=== PATIENT | female | born 1950 | race Caucasian/White ===

== ENCOUNTER → 2017-07-23 08:51 | Outpatient (CLI) | payer MEDICARE, SELFPAY ==
--- NOTE | 2017-07-23 08:55 | MM_ITS ---
MM Dig screening mamm BI w/CAD CAD Screening COMPARISON: Digital mammograms 03/12/2016 and 08/03/2013 INDICATION: There is a history of breast cancer in patient's sister diagnosed in her 50s. There has been a previous biopsy right breast for benign disease. TECHNIQUE: Standard CC and MLO images were obtained. R2 CAD reviewed. FINDINGS: Moderate heterogenic fibroglandular densities are seen in the central portions of both breasts. The findings are fairly symmetrical bilaterally. There is faint arterial calcification in each breast and is a benign-appearing calcification left breast. There is no suspicious lesion and there are no suspicious microcalcifications. IMPRESSION: Moderate breast density with no suspicious lesion seen BI-RADS Category: 2 Benign Finding(s) RECOMMENDED FOLLOW-UP: 1YR - 1 YEAR FOLLOW-UP (A letter has been sent to the patient regarding results of the study.)
== END ==
PROVIDERS: Family Provider Internal Medicine Adolescent Medicine; PCP Surgery; Visit Provider Internal Medicine Adolescent Medicine
DX: Z12.31 Encounter for screening mammogram for malignant neoplasm of breast (principal)
CPT/HCPCS: 77067

== ENCOUNTER → 2018-07-25 08:39 | Outpatient (CLI) | payer MEDICARE, MEDICAID, SELFPAY ==
--- NOTE | 2018-07-25 08:42 | XR_ITS ---
XR DEXA axial skeleton HISTORY: ITS.REASON: OSTEOPOROSIS ORDERING PHYSICIAN: Mer Isaac PATIENT AGE: 68 years COMPARISON: 04/12/2016 FINDINGS: The BMD measured at the AP SPINE L1-L4 is 0.862 g/cm squared with a T score of -2.7. This is considered Osteoporotic according to the World Health Organization criteria. Fracture risk is High. Treatment is advised. The mean hip density has a T score of -2.5 also consistent with osteoporosis. The lumbar spine density has increased by 7% in the hip density is unchanged. IMPRESSION: Osteoporosis without fracture risk. Treatment is advised. Recommend follow-up exam in one year.
--- NOTE | 2018-07-25 08:42 | MM_ITS ---
MM Dig screening mamm BI w/CAD CAD Screening COMPARISON: Digital mammograms with CAD 07/23/2017 and 03/12/2016 INDICATION: There is a history of breast cancer in patient's sister diagnosed in her 50s. There is been previous biopsy right breast for benign disease. TECHNIQUE: Standard CC and MLO images were obtained. R2 CAD reviewed. FINDINGS: Moderate somewhat heterogenic fibroglandular densities are seen in the central portions of both breasts and the findings are bilateral and symmetrical. There is a benign-appearing calcification left breast. There is faint arterial calcification in each breast. There is no suspicious lesion and there are no suspicious microcalcifications. IMPRESSION: Moderate breast density with no suspicious lesion seen BI-RADS Category: 2 Benign Finding(s) RECOMMENDED FOLLOW-UP: 1YR - 1 YEAR FOLLOW-UP (A letter has been sent to the patient regarding results of the study.)
== END ==
PROVIDERS: PCP Nurse Practitioner Family; Visit Provider Nurse Practitioner Family
DX: Z12.31 Encounter for screening mammogram for malignant neoplasm of breast (principal); M81.0 Age-related osteoporosis without current pathological fracture; Z13.820 Encounter for screening for osteoporosis
CPT/HCPCS: 77067; 77080

== ENCOUNTER → 2018-11-26 14:55 | Outpatient (CLI) | payer MEDICARE, MEDICAID, SELFPAY ==
--- NOTE | 2018-11-26 14:59 | CT_ITS ---
CT lung screening EXAM: CT LUNG LOW DOSE WO CONTRAST HISTORY: Nicotine dependency ITS.REASON: CURRENT TOBACCO USE ORDERING PHYSICIAN: Mer Isaac APRN PATIENT AGE: 68 years COMPARISON: None TECHNIQUE: The exam was performed on a GE Light Speed [address] scanner using 2.90 mGy CTDI. A low dose helical CT CHEST was performed on a multi-detector scanner. All CT scans at the facility use one or more dose reduction, viz: automated exposure control, ma/kV adjustment per patient size (including targeted exams where dose is matched to indication, i.e. head), or iterative reconstruction technique. The LDCT was performed in a facility that meets the criteria for the screening program. Data regarding this exam was submitted to ACR which is an approved registry. The order for this exam indicates that it came as a result of a lung cancer screening counseling shard decision-making visit that included all the elements required of such a visit including smoking cessation. The radiologist interpreting this exam meets the CMS criteria for the LDCT lung cancer screening program. The exam is reported using the Lung-RADS classification scale and reported to the ACR registry. NOTE: This study was performed for the specific purposes of lung cancer screening and is not an alternative to diagnostic chest CT. RADIATION DOSE: CTDI vol(CT dose Index-volume) = 2.90mG DLP (Dose Length Product) = 114.1 mGcm FINDINGS: There are biapical fibrotic changes with COPD and centrilobular emphysema. Calcified granuloma right upper lobe. There are fibrotic changes in the lung bases as well. Mild diffuse bronchial thickening there is an 8 mm noncalcified nodule within the lingula. Coronary artery calcifications are present. IMPRESSION: 1. Lung RADS Category: 3, probably benign, 8 mm nodule within the lingula 2. Other findings: COPD/centrilobular emphysema, coronary artery disease RECOMMENDATIONS: [address] without and with contrast
== END ==
PROVIDERS: PCP Nurse Practitioner Family; Visit Provider Nurse Practitioner Family
DX: Z12.2 Encounter for screening for malignant neoplasm of respiratory organs (principal); Z87.891 Personal history of nicotine dependence

== ENCOUNTER → 2019-03-12 09:13 | Outpatient (CLI) | payer MEDICARE, MEDICAID, SELFPAY ==
--- NOTE | 2019-03-12 09:16 | MR_ITS ---
PROCEDURE: MR HEAD/BRAIN WO/W CON CLINICAL INDICATION: NEW ONSET HEADACHES, DIZZINESS COMPARISON: No exams were available for comparison TECHNIQUE: Routine multi-echo and multiplanar images also utilizing 12 cc of ProHance contrast. Diffusion-weighted images are obtained as well. FINDINGS: There are no areas of restricted diffusion. There is no mass, acute hemorrhage or extra-axial fluid collection. Ventricles, sulci and cortical areas are normal. There are small round foci of CSF signal along the anterior, short areas bilaterally consistent with prominent perivascular spaces. White Matter areas show few small nonenhancing foci of increased FLAIR signal involving frontal and parietal centrum semiovale deep white matter areas as well as the central aspect of the meryl. Visualized portions of the optic pathway structures are normal. There are no areas of abnormal enhancement. Visualized vessels are patent and the area of the foramen magnum is normal. There is some increased T2 signal in the left mastoid air cells. IMPRESSION: No acute intracranial process and no acute infarctions. White matter findings consistent with mild chronic microvascular ischemic change. Left mastoid air cell effusion. Dictated by: Tommy Corbin 03/12/2019 10:29 Electronically signed by Tommy Corbin in [place] 03/12/2019 10:29
--- NOTE | 2019-03-12 10:06 | HMH.ITSHM ---
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 []VITAMIN D CALCIUM
== END ==
PROVIDERS: PCP Nurse Practitioner Family; Visit Provider Nurse Practitioner Family
DX: R51 Headache (principal); R42 Dizziness and giddiness
CPT/HCPCS: 70553; A9576

== ENCOUNTER 2019-03-22 18:40 | Observation (INO) ==
--- NOTE | 2019-03-22 19:07 | Emergency Department Note ---
ED Disposition Clinical Impression: Acute exacerbation of chronic obstructive airways disease Disposition: Admitted as Observation Condition on Discharge: Good Referrals: Henrik Hand MD [Primary Care Provider] - - Critical Care Critical Care Time: No Attestation: On 03/22/19, the high probability of a clinically significant, sudden or life threatening deterioration of the following system(s) required my full and direct attention, intervention and personal management. The time I documented below is in addition to time spent performing reported procedures but includes the following listed in this critical care notation. Medical Decision Making - Medical Records Medical records reviewed: Yes: I reviewed the patient's medical records. - Braulio Inquiry Pt receiving controlled substance: No Vital Signs: 03/22/19 18:54 03/22/19 19:11 03/22/19 19:52 Temperature 99 F Temperature Source Oral Pulse Rate 87 Pulse Rate [Left Radial] 100 H 85 Respiratory Rate 24 Blood Pressure [Right Arm] 151/81 H 127/88 Blood Pressure Mean [Right Arm] 104 101 Blood Pressure Source [Right Arm] Manual Cuff/ Palpation Blood Pressure Position [Right Arm] Sitting 02 Sat by Pulse Oximetry 71 L 94 L Oxygen Delivery Method Room Air - Lab Data Lab results reviewed: Yes: I reviewed the patient's lab results. Lab Results 03/22/19 19:01: WBC 8.1, RBC 5.04, Hgb 15.6, Hct 50.2 H, MCV 99.5 H, MCH 30.9, MCHC 31.1 L, RDW 13.5, Plt Count 255, MPV 8.7, Neut % (Auto) 68.7, Lymph % (Auto) 21.4, [place] % (Auto) 7.6, Eos % (Auto) 1.7, Baso % (Auto) 0.5, Neut # (Auto) 5.6, Lymph # (Auto) 1.7, [place] # (Auto) 0.6, Eos # (Auto) 0.1, Baso # (Auto) 0.0 03/22/19 19:01: Sodium 140, Potassium 4.2, Chloride 99, Carbon Dioxide 36 H, Anion Gap 9.2, BUN 14, Creatinine 0.70, Estimated Creat Clear 46, Estimated GFR 83, Est GFR ( Amer) 100, Glucose 115 H, Calcium 9.0, Total Bilirubin 0.3, AST 20, ALT 20, Alkaline Phosphatase 87, Troponin I < 0.02, Total Protein 7.5, Albumin 3.4, Globulin 4.1 H, Albumin/Globulin Ratio 0.8 L 03/22/19 19:01: Lactate 1.5 Result diagrams: 03/22/19 19:01 03/22/19 19:01 Orders (Tests/Meds): ED MEDICATIONS Generic Name Dose Route Start Last Admin Trade Name Freq PRN Reason Stop Dose Admin Levofloxacin/Dextrose 500 mg in 100 mls @ 100 mls/hr 03/22/19 19:45 03/22/19 19:45 Levaquin 500mg/100ml Premix IV 04/05/19 19:44 100 mls/hr Q24H AMIRA Administration Protocol Discontinued Medications Generic Name Dose Route Start Last Admin Trade Name Freq PRN Reason Stop Dose Admin Albuterol/Ipratropium 3 ml 03/22/19 19:03 03/22/19 19:11 Duoneb 3ml Neb IH 03/22/19 19:04 3 ml ONCE ONE Administration Methylprednisolone Sodium Succinate 125 mg 03/22/19 19:03 03/22/19 19:32 Solu-Medrol 125mg/2ml Vial IV 03/22/19 19:04 125 mg ONCE ONE Administration ORDERS Category Date Time Status Chest XR -- portable [XR chest portable] Stat Exams 03/22/19 18:58 Taken Blood Culture Stat Micro 03/22/19 19:34 Received - Radiology Data #1 Image(s): Chest Image Reviewed: Yes I reviewed the patient's radiology image Preliminary Findings: No Infiltrates Seen - ECG Data Tracing #1 I reviewed this ECG and interpreted as documented below: Normal Sinus Rhythm: Yes (no stemi) Medical Decision Narrative: admit d/w Dr Liriano General Adult HPI - General Chief complaint: Shortness of Breath/Dyspnea Stated complaint: SOA Time Seen by Provider: 03/22/19 19:04 Mode of Arrival: Ambulatory Source of Information: Patient Limitations: No Limitations Description of Symptoms (Recalled from ER Triage Doc. by RN): TO ED PER [employer] CAR WITH C/O SOB X SEVERAL DAYS PROGRESSIVELY GETTING WORSE. +COUGH, ?FEVER AT HOME. 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, +cough, no chest pain or fever, hx copd - Related Data Home Medications Medication Instructions Recorded Confirmed albuterol sulfate 90 mcg/actuation 1 inh INHALATION ONCE 08/15/17 breath activated powder inhaler albuterol sulfate HFA 90 1 puff INHALATION Q6H 08/15/17 mcg/actuation aerosol inhaler alendronate 70 mg tablet 70 mg PO QWEEK 08/15/17 budesonide-formoterol HFA 160 2 inh INHALATION Q12H 08/15/17 mcg-4.5 mcg/actuation aerosol inhaler calcium carbonate 600 mg calcium 600 mg PO ONCE tab 08/15/17 (1,500 mg) tablet lovastatin 40 mg tablet 40 mg PO BID tab 08/15/17 naproxen sodium 220 mg tablet 220 mg PO Q12H 08/15/17 Allergies Allergy/AdvReac Type Severity Reaction Status Date / Time azithromycin [From Zithromax] Allergy Verified 03/22/19 20:23 [facility] History - Hepatitis A Screen Drug use history?: No High risk sexual behaviors?: No History of sexually transmitted infection?: No Currently employed?: No Childcare worker?: No Do you have indoor plumbing?: Yes Do you have electricity?: Yes Attestation statement:: This patient has been screened for Hepatitis A risk factors. Medical History: Reports:: Chronic Obstructive Pulmonary Disease (COPD), Hyperlipidemia Denies:: Cancer, Diabetes Mellitus Type 1, Diabetes Mellitus Type 2, MRSA Amputation: No Fractures: No - Social History Smoking Status: Current every day smoker Tobacco Type: cigarettes # Packs/Day (cigarettes): 1 Alcohol Intake: never Substance Use Type: denies use Occupational Status: other ROS Obtained: Yes Systems reviewed as appropriate & no additional complaints - Constitutional Constitutional: Reports fatigue - Eyes Eyes: Denies change in vision - ENT Ears, Nose, Mouth, and Throat: Denies neck pain - Cardiovascular Cardiovascular: Denies acrocyanosis, Denies chest pain - Respiratory Respiratory: Yes dyspnea - Gastrointestinal Gastrointestingal: Denies: abdominal pain - Musculoskeletal Musculoskeletal: Denies limited range of motion - Integumentary/Breasts Skin/Breast: Denies rash - Neurologic Neurologic: Denies headache(s) Physical Exam - General General appearance: alert, in no apparent distress - Head Head exam: normocephalic - Eye Eye exam: Present: normal appearance - ENT ENT exam: Present: mucous membranes moist - Neck Neck exam: Present: normal inspection - Respiratory Respiratory exam: Present: wheezes. Absent: stridor - Cardiovascular Cardiovascular exam: Present: regular rate, normal rhythm - Abdominal Exam Abdominal exam: Present: soft. Absent: tenderness - Extremities Exam Extremities exam: Present: full ROM. Absent: pedal edema - Back Exam Back exam: Absent: vertebral tenderness - Neurological Exam Neurological exam: Present: alert, oriented X3 - Psychiatric Psychiatric exam: Present: normal affect, normal mood - Skin Skin exam: Present: warm, dry
[2019-03-22 19:14] LABS: Basophils % 0.5 % (0.1-2.0); Eosinophils # 0.1 K/mm3 (0.0-0.4); Eosinophils % 1.7 % (0.1-12.0); Hematocrit 50.2 % (37.0-47.0); Hemoglobin 15.6 g/dL (12.2-16.2); Lymphocytes # 1.7 K/mm3 (0.7-4.5); Lymphocytes % 21.4 % (10-50); Mean Corpuscular HGB Conc 31.1 g/dL (31.8-35.4); Mean Corpuscular Volume 99.5 fl (81-99); Mean Platelet Volume 8.7 fl (7.4-10.4); Monocytes # 0.6 K/mm3 (0.1-1.0); Monocytes % 7.6 % (1.7-9.3); Neutrophils # 5.6 K/mm3 (1.8-7.8); Neutrophils % 68.7 % (37.0-80.0); Platelet Count 255 K/mm3 (142-424); Red Blood Count 5.04 M/mm3 (4.20-5.40); Red Cell Distribution Width 13.5 % (11.5-17.5); White Blood Count 8.1 K/mm3 (4.8-10.8)
[2019-03-22 19:29] LABS: Alanine Aminotransferase 20 U/L (12-78); Albumin Level 3.4 gm/dL (3.4-5.0); Albumin/Globulin Ratio 0.8 (1.1-1.8); Alkaline Phosphatase 87 U/L (46-116); Anion Gap 9.2 mEq/L (5-15); Aspartate Amino Transferase 20 U/L (15-37); Bilirubin,Total 0.3 mg/dL (0.2-1.0); Blood Urea Nitrogen 14 mg/dL (7-18); Carbon Dioxide 36 mmol/L (21.0-32.0); Chloride 99 mmol/L (98-107); Globulin 4.1 gm/dl (1.3-3.2); Glucose 115 mg/dL (74-106); Sodium 140 mmol/L (136-145); Total Protein,Serum 7.5 gm/dL (6.4-8.2)
[2019-03-22 20:32] LABS: ABG Base Excess 6.2 mmol/L (-2.4-2.3); ABG Oxygen Saturation 92 % (90-100); ABG PH 7.34 mmol/L (7.35-7.45); ABG PO2 63.9 mmhg (80-100); ABG TCO2 33.9 mmhg (23-27)
[2019-03-22 20:33] LABS: Allen's Test Y; Oxygen 3.5 %
[2019-03-22 20:36] LABS: ABG PCO2 61.4 mmhg (35.0-45.0)
--- NOTE | 2019-03-23 00:56 | History & Physical Report ---
*Admission Date: 03/22/19 *Chief complaint: SOA *History of present illness: 68-year-old female history of COPD, non-oxygen dependent at home who presented with worsening shortness of breath and dizziness over the past few days. He came to the ER and was found to have hypoxemia and elevated CO2 with a normal pH. Imaging not consistent with pneumonia however new oxygen requirement noted. Admitted for acute hypoxemic respiratory failure. Started on antibiotics and steroids. Patient states she feels a little bit better this morning than she did yesterday. Denies any chest pain, syncope, nausea, vomiting. Uses inhalers at home but they were not helping her. In moderate respiratory distress this morning on supplemental oxygen with normal O2 sats. [facility] History I have reviewed the patient's past medical history: Yes Medical History: Reports:: Chronic Obstructive Pulmonary Disease (COPD), Hyperlipidemia Denies:: Cancer, Diabetes Mellitus Type 1, Diabetes Mellitus Type 2, MRSA *Have you ever received a pneumonia vaccine?: Yes *Have you received a flu vaccine this season?: Yes Laterality Cases: Bilateral: Cataract Other Surgeries: Yes: Colonoscopy, Tubal Ligation Amputation: No Fractures: No - *Social History Educational Level: Attended Grade School Smoking Status: Current every day smoker Tobacco Type: cigarettes # Packs/Day (cigarettes): 1 Alcohol Intake: never Substance Use Type: denies use *Occupational Status:: retired Household Members: children *Travel in the last 8 weeks: None Family Hx:: Cancer, Heart Attack, Hyperlipidemia, Hypertension, Stroke Review of Systems - Review of Systems Review of systems:: pertinent systems reviewed and negative unless documented below - *Neurologic Denies headache(s) Meds Home Medications Medication Instructions Recorded Confirmed Type albuterol sulfate 90 mcg/actuation 1 inh INHALATION ONCE 08/15/17 03/22/19 History breath activated powder inhaler albuterol sulfate HFA 90 1 puff INHALATION Q6H 08/15/17 03/22/19 History mcg/actuation aerosol inhaler alendronate 70 mg tablet 70 mg PO QWEEK 08/15/17 03/22/19 History budesonide-formoterol HFA 160 2 inh INHALATION Q12H 08/15/17 03/22/19 History mcg-4.5 mcg/actuation aerosol inhaler calcium carbonate 600 mg calcium 600 mg PO ONCE tab 08/15/17 03/22/19 History (1,500 mg) tablet lovastatin 40 mg tablet 40 mg PO BID tab 08/15/17 03/22/19 History naproxen sodium 220 mg tablet 220 mg PO Q12H 08/15/17 03/22/19 History Desloratadine/Pseudoephedrine 1 each PO DAILY 03/22/19 03/22/19 History [Clarinex-D 12 Hour Tablet] Fluticasone Propionate [Flonase 1 spr NS BID 03/22/19 03/22/19 History 50mcg nasal spray 16gm] Allergies Allergy/AdvReac Type Severity Reaction Status Date / Time azithromycin [From Zithromax] Allergy Verified 03/22/19 20:23 Exam Vital signs and Labs for Last 24 Hours: Temp Pulse Resp BP Pulse Ox 98.3 F 86 20 122/61 92 L 03/23/19 00:00 03/23/19 00:00 03/23/19 00:00 03/23/19 00:00 03/23/19 00:00 Laboratory Results - last 24 hr 03/22/19 19:01: WBC 8.1, RBC 5.04, Hgb 15.6, Hct 50.2 H, MCV 99.5 H, MCH 30.9, MCHC 31.1 L, RDW 13.5, Plt Count 255, MPV 8.7, Neut % (Auto) 68.7, Lymph % (Auto) 21.4, [place] % (Auto) 7.6, Eos % (Auto) 1.7, Baso % (Auto) 0.5, Neut # (Auto) 5.6, Lymph # (Auto) 1.7, [place] # (Auto) 0.6, Eos # (Auto) 0.1, Baso # (Auto) 0.0 03/22/19 19:01: Sodium 140, Potassium 4.2, Chloride 99, Carbon Dioxide 36 H, Anion Gap 9.2, BUN 14, Creatinine 0.70, Estimated Creat Clear 46, Estimated GFR 83, Est GFR ( Amer) 100, Glucose 115 H, Calcium 9.0, Total Bilirubin 0.3, AST 20, ALT 20, Alkaline Phosphatase 87, Troponin I < 0.02, Total Protein 7.5, Albumin 3.4, Globulin 4.1 H, Albumin/Globulin Ratio 0.8 L 03/22/19 19:01: Lactate 1.5 03/22/19 20:31: Specimen Source R/r, O2 % 3.5, ABG pH 7.34 L, ABG pCO2 61.4 H, ABG pO2 63.9 L, ABG HCO3 32.0 H, ABG Total CO2 33.9 H, ABG O2 Saturation 92, ABG Base Excess 6.2 H, Hubert Test Y 03/22/19 23:25: Troponin I < 0.02 I & O for Last 24 hours: Intake & Output 03/20/19 03/21/19 03/22/19 03/23/19 23:59 23:59 23:59 23:59 Weight 56.245 kg - Constitutional mild distress, thin, chronically ill appearing - *Routine HEENT Exam Head: Present: normocephalic Eye: Present: EOMI, PERRL ENT: Present: mucous membranes moist - *Routine Neck Exam Present: supple. Absent: lymphadenopathy - *Routine Respiratory Exam Present: accessory muscle use, prolonged expiratory phase, rhonchi, wheezes, diminished air movement - *Routine Cardiovascular Exam Present: RRR, Normal S1 - *Routine Abdominal Exam Present: soft, normoactive bowel sounds. Absent: tenderness - *Routine Extremities Exam Absent: cyanosis, clubbing, edema - *Routine Skin Exam Present: warm. Absent: rash - *Routine Neurological Exam Present: alert, oriented X3 Assessment and Plan (1) Acute hypoxemic respiratory failure Current visit: Yes Status: Acute Category: Medical Code(s): J96.01 - Acute respiratory failure with hypoxia (2) COPD exacerbation Current visit: Yes Status: Acute Category: Medical Code(s): J44.1 - Chronic obstructive pulmonary disease with (acute) exacerbation - Assessment and plan all Dx Assessment and Plan for all problems:: 5-year-old female with history of COPD with no oxygen use at home who presents with acute worsening of respiratory failure necessitating oxygen. Patient also found to be hypercarbic. At this time has been initiated on antibiotics and steroids. Continues to have difficulty breathing this morning though somewhat improved from presentation. DuoNebs every 4 to help promote opening airways. Will assess for potential need for oxygen at home at time of discharge. Currently continues to require respiratory management and inpatient management due to respiratory distress. Full code.
[2019-03-23 06:13] LABS: Basophils % 0.3 % (0.1-2.0); Eosinophils # 0.1 K/mm3 (0.0-0.4); Eosinophils % 0.8 % (0.1-12.0); Hematocrit 52.2 % (37.0-47.0); Hemoglobin 15.9 g/dL (12.2-16.2); Lymphocytes # 0.8 K/mm3 (0.7-4.5); Lymphocytes % 12.8 % (10-50); Mean Corpuscular HGB Conc 30.4 g/dL (31.8-35.4); Mean Corpuscular Volume 101.1 fl (81-99); Mean Platelet Volume 8.8 fl (7.4-10.4); Monocytes # 0.2 K/mm3 (0.1-1.0); Monocytes % 3.1 % (1.7-9.3); Neutrophils # 5.4 K/mm3 (1.8-7.8); Platelet Count 239 K/mm3 (142-424); Red Blood Count 5.16 M/mm3 (4.20-5.40); Red Cell Distribution Width 13.3 % (11.5-17.5); White Blood Count 6.5 K/mm3 (4.8-10.8)
[2019-03-23 06:23] LABS: Anion Gap 8.5 mEq/L (5-15); Blood Urea Nitrogen 12 mg/dL (7-18); Calcium 8.8 mg/dL (8.5-10.1); Carbon Dioxide 35 mmol/L (21.0-32.0); Chloride 101 mmol/L (98-107); Glucose 159 mg/dL (74-106); Sodium 140 mmol/L (136-145)
--- NOTE | 2019-03-23 07:42 | Pharmacy Consult Notes ---
[facility] Pharmacy VTE Monitoring - Patient Demographics Admission date: 03/22/19 Report Date: 03/23/19 Time: 07:41 Allergies/Adverse Reactions: Patient Allergies azithromycin [From Zithromax] Allergy (Verified 03/22/19 20:23) Height: 1.52 m Weight: 55.82 kg Patient Problems: Current Active Problems Acute exacerbation of chronic obstructive airways disease (Acute) - VTE Risk Labs: VTE Related Lab Results Hgb 15.9 g/dL (12.2-16.2) 03/23/19 05:45 Hct 52.2 % (37.0-47.0) H 03/23/19 05:45 Plt Count 239 K/mm3 (142-424) 03/23/19 05:45 BUN 12 mg/dL (7-18) 03/23/19 05:45 Creatinine 0.60 mg/dL (0.55-1.02) 03/23/19 05:45 Estimated Creat Clear 46 mL/min (50-200) 03/23/19 05:45 VTE Risk Level: Low Risk - Prophylaxis VTE Prophylaxis Ordered?: Yes Types of VTE Prophylaxis: TEDS Knee High Location of Applied Device: Bilateral Lower Extremeties - VTE Diagnosis Confirmed Treatment or plan recommended: Continue Current Treatment
--- NOTE | 2019-03-23 17:21 | Electrocardiograph Report ---
APPROVED REPORT Exam: Resting ECG HR:89 bpm ECG Measurements Heart Rate 89 AXES IN 134 P 82 QRSd 94 QRS 82 QT 376 T71 QTc 457 <Conclusion> Normal sinus rhythm with sinus arrhythmia Incomplete RBBB Otherwise Normal ECG Electronically signed by : Maneul Smith, 03/23/2019 17:21:14
[2019-03-24 06:15] LABS: Basophils % 0.5 % (0.1-2.0); Eosinophils # 0.1 K/mm3 (0.0-0.4); Eosinophils % 0.9 % (0.1-12.0); Hematocrit 45.9 % (37.0-47.0); Lymphocytes # 1.8 K/mm3 (0.7-4.5); Lymphocytes % 30.6 % (10-50); Mean Corpuscular HGB Conc 29.8 g/dL (31.8-35.4); Mean Corpuscular Volume 102.7 fl (81-99); Mean Platelet Volume 8.4 fl (7.4-10.4); Monocytes # 0.4 K/mm3 (0.1-1.0); Monocytes % 6.3 % (1.7-9.3); Neutrophils # 3.7 K/mm3 (1.8-7.8); Neutrophils % 61.8 % (37.0-80.0); Platelet Count 218 K/mm3 (142-424); Red Blood Count 4.47 M/mm3 (4.20-5.40); Red Cell Distribution Width 13.7 % (11.5-17.5)
[2019-03-24 06:24] LABS: Anion Gap 4.3 mEq/L (5-15); Calcium 8.5 mg/dL (8.5-10.1)
[2019-03-24 07:20] LABS: Hemoglobin 13.6 g/dL (12.2-16.2)
--- NOTE | 2019-03-24 15:59 | Progress Note ---
Internal Medicine - PN: Subj *Date: 03/24/19 *Time: 08:45 Interval history: Ms. Machuca continues to have accessory muscle use and dyspnea. Oxygen saturations are 92 to 94% on 2 L nasal cannula oxygen while in the room on interview this morning. Desatted down to 86% at rest when removed supplemental oxygen and was just on room air. Overall she states she feels somewhat better however is still easily fatigued and dyspneic with exertion such as walking to the bathroom. Tolerating regular p.o. intake. Denies chest pain, nausea, vomiting, confusion. No dizziness or syncope Exam Vital signs and Labs for Last 24 Hours: Temp Pulse Resp BP Pulse Ox 97.8 F 72 19 145/63 H 90 L 03/24/19 12:00 03/24/19 14:25 03/24/19 12:00 03/24/19 12:00 03/24/19 12:00 Laboratory Results - last 24 hr 03/24/19 05:32: WBC 6.0, RBC 4.47, Hgb 13.6 D, Hct 45.9, MCV 102.7 H, MCH 30.6, MCHC 29.8 L, RDW 13.7, Plt Count 218, MPV 8.4, Neut % (Auto) 61.8, Lymph % (Auto) 30.6, [place] % (Auto) 6.3, Eos % (Auto) 0.9, Baso % (Auto) 0.5, Neut # (Auto) 3.7, Lymph # (Auto) 1.8, [place] # (Auto) 0.4, Eos # (Auto) 0.1, Baso # (Auto) 0.0 03/24/19 05:32: Sodium 143, Potassium 4.3, Chloride 104, Carbon Dioxide 39 H, Anion Gap 4.3 L, BUN 11, Creatinine 0.56, Estimated Creat Clear 46, Estimated GFR 107, Est GFR ( Amer) 129, Glucose 112 H D, Calcium 8.5 I & O for Last 24 hours: Intake & Output 03/21/19 03/22/19 03/23/19 03/24/19 23:59 23:59 23:59 23:59 Intake Total 270 / 270 1279 / 1279 1893 / 1893 Output Total 400 / 400 800 / 800 Balance 270 / 270 879 / 879 1093 / 1093 Weight 55.537 kg 55.82 kg 55.508 kg Narrative: - Constitutional mild distress, thin, chronically ill appearing - *Routine HEENT Exam Head: Present: normocephalic Eye: Present: EOMI, PERRL ENT: Present: mucous membranes moist - *Routine Neck Exam Present: supple. Absent: lymphadenopathy - *Routine Respiratory Exam Present: accessory muscle use, prolonged expiratory phase, rhonchi, wheezes, diminished air movement bilaterally - *Routine Cardiovascular Exam Present: RRR, Normal S1 - *Routine Abdominal Exam Present: soft, normoactive bowel sounds. Absent: tenderness - *Routine Extremities Exam Absent: cyanosis, clubbing, edema - *Routine Skin Exam Present: warm. Absent: rash - *Routine Neurological Exam Present: alert, oriented X3 Assessment and Plan (1) Acute hypoxemic respiratory failure Current visit: Yes Status: Acute Category: Medical Code(s): J96.01 - Acute respiratory failure with hypoxia (2) COPD exacerbation Current visit: Yes Status: Acute Category: Medical Code(s): J44.1 - Chronic obstructive pulmonary disease with (acute) exacerbation - Assessment and plan all Dx Assessment and Plan for all problems:: Is to have severe exacerbation. Transition oral antibiotics today and oral steroids. Continue breathing treatments however scheduled every 4 hours at this time. To needs to require inpatient management due to respiratory distress. Will need oxygen at home at time of discharge. Plan to complete 5 days of steroids and antibiotics. Additionally will transition to inhaled corticosteroid/LABA/LAMA. We will set patient up with nebulizer at home to use duo nebs as needed 3-4 times a day until feeling better. Will need PFTs in the outpatient setting. Condition guarded, prognosis fair
--- NOTE | 2019-03-24 22:29 | Discharge Summary ---
General - General Admission date:: 03/22/19 Discharge date: 03/25/19 HPI HPI: 68-year-old female history of COPD, non-oxygen dependent at home who presented with worsening shortness of breath and dizziness over the past few days. He came to the ER and was found to have hypoxemia and elevated CO2 with a normal pH. Imaging not consistent with pneumonia however new oxygen requirement noted. Admitted for acute hypoxemic respiratory failure. Started on antibiotics and steroids. Patient states she feels a little bit better this morning than she did yesterday. Denies any chest pain, syncope, nausea, vomiting. Uses inhalers at home but they were not helping her. In moderate respiratory distress this morning on supplemental oxygen with normal O2 sats. Hospital Course Hospital Course: Admitted for acute hypoxemic respiratory failure secondary to severe COPD exacerbation. Initiated on antibiotics and steroids along with supplemental oxygen. Patient continued to require oxygen throughout admission. Transition to oral therapy for her antibiotics and steroids to complete a full 7-day course of treatment. Patient tolerating good p.o. intake. Was dyspneic with ambulating around the room, worse when off of oxygen. Had slow response to steroids and breathing treatments but gradually improved to being stable enough to finish management and therapy at home. Will discharge home with oxygen and nebulizer. Plan to follow-up closely in the outpatient setting to reassess. Of note, patient's resting O2 sat on room air was 88% on day of discharge. Denies chest pain, nausea, vomiting, confusion. Objective Vital signs: Temp Pulse Resp BP Pulse Ox 97.7 F 83 19 139/70 90 L 03/24/19 20:00 03/24/19 21:35 03/24/19 20:00 03/24/19 20:00 03/24/19 20:00 Narrative: - Constitutional interval improvement in distress, thin, chronically ill appearing - *Routine HEENT Exam Head: Present: normocephalic Eye: Present: EOMI, PERRL ENT: Present: mucous membranes moist - *Routine Neck Exam Present: supple. Absent: lymphadenopathy - *Routine Respiratory Exam Present: Eating more comfortable this morning, interval decrease in accessory muscle use, prolonged expiratory phase, rhonchi, wheezes; diminished air movement bilaterally - *Routine Cardiovascular Exam Present: RRR, Normal S1 - *Routine Abdominal Exam Present: soft, normoactive bowel sounds. Absent: tenderness - *Routine Extremities Exam Absent: cyanosis, clubbing, edema - *Routine Skin Exam Present: warm. Absent: rash - *Routine Neurological Exam Present: alert, oriented X3 Results Labs on day of discharge: Labs from last 24 hours 03/24/19 03/24/19 05:32 05:32 WBC 6.0 RBC 4.47 Hgb 13.6 D Hct 45.9 MCV 102.7 H MCH 30.6 MCHC 29.8 L RDW 13.7 Plt Count 218 MPV 8.4 Neut % (Auto) 61.8 Lymph % (Auto) 30.6 [place] % (Auto) 6.3 Eos % (Auto) 0.9 Baso % (Auto) 0.5 Neut # (Auto) 3.7 Lymph # (Auto) 1.8 [place] # (Auto) 0.4 Eos # (Auto) 0.1 Baso # (Auto) 0.0 Sodium 143 Potassium 4.3 Chloride 104 Carbon Dioxide 39 H Anion Gap 4.3 L BUN 11 Creatinine 0.56 Estimated Creat Clear 46 Estimated GFR 107 Est GFR ( Amer) 129 Glucose 112 H D Calcium 8.5 Preliminary micro results at discharge 03/22/19 19:34 Blood Culture - Preliminary Blood NO GROWTH AFTER 48 HOURS 03/22/19 19:34 Blood Culture - Preliminary Blood NO GROWTH AFTER 48 HOURS DS: Diagnosis - Discharge Diagnosis (1) Acute hypoxemic respiratory failure Status: Resolved (2) COPD exacerbation Status: Acute Discharge Plan - Patient Discharge Instructions ACTIVITY: Continue current activity DIET: continue same diet Patient Instructions: Chronic Obstructive Pulmonary Disease, DI for Chronic Obstructive Pulmonary Disease - Follow up Plan Follow up with: Elie Chauhan MD [Staff Physician] - 04/02/19 11:30 am Disposition: Home, Self-Usp Medications: Home Medications Medication Instructions Recorded Confirmed Type albuterol sulfate HFA 90 2 puff INHALATION QIDP PRN 08/15/17 03/23/19 History mcg/actuation aerosol inhaler alendronate 70 mg tablet 70 mg PO WEEKLY 08/15/17 03/23/19 History budesonide-formoterol HFA 160 2 puffs IH BID 08/15/17 03/23/19 History mcg-4.5 mcg/actuation aerosol inhaler calcium carbonate 600 mg calcium 600 mg PO DAILY tab 08/15/17 03/23/19 History (1,500 mg) tablet lovastatin 40 mg tablet 80 mg PO DAILY tab 08/15/17 03/23/19 History Desloratadine/Pseudoephedrine 1 each PO DAILY 03/22/19 03/22/19 History [Clarinex-D 12 Hour Tablet] Fluticasone Propionate [Flonase 1 spr NS BID 03/22/19 03/22/19 History 50mcg nasal spray 16gm] Fluticasone/Umeclidin/Vilanter 1 each IH DAILY 30 Days #1 03/24/19 Rx [Trelegy Ellipta 100-62.5-25] blst.w.dev Ipratropium/Albuterol Sulfate 3 ml IH Q4HP PRN 10 Days #60 03/24/19 Rx [Duoneb 3mL neb] ampul.neb levoFLOXacin [Levaquin 500mg 500 mg PO 1700 3 Days #3 tab 03/24/19 Rx tab] predniSONE [Deltasone 10mg tablet] 40 mg PO DAILY 3 Days #12 tab 03/24/19 Rx Prescriptions/Medication Reconciliation: New levoFLOXacin [Levaquin 500mg tab] 500 mg PO 1700 3 Days #3 tab Fluticasone/Umeclidin/Vilanter [Trelegy Ellipta 100-62.5-25] 1 each IH DAILY 30 Days #1 blst.w.dev Ipratropium/Albuterol Sulfate [Duoneb 3mL neb] 3 ml IH Q4HP PRN 10 Days #60 ampul.neb PRN Reason: Shortness Of Breath predniSONE [Deltasone 10mg tablet] 40 mg PO DAILY 3 Days #12 tab Continued alendronate 70 mg tablet 70 mg PO WEEKLY calcium carbonate 600 mg calcium (1,500 mg) tablet 600 mg PO DAILY tab albuterol sulfate HFA 90 mcg/actuation aerosol inhaler 2 puff INHALATION QIDP PRN PRN Reason: Shortness Of Breath lovastatin 40 mg tablet 80 mg PO DAILY tab Fluticasone Propionate [Flonase 50mcg nasal spray 16gm] 1 spr NS BID Desloratadine/Pseudoephedrine [Clarinex-D 12 Hour Tablet] 1 each PO DAILY Discontinued budesonide-formoterol HFA 160 mcg-4.5 mcg/actuation aerosol inhaler 2 puffs IH BID - Problem Reconciliation Problems Reviewed?: Yes
== END 2019-03-25 14:49 | disposition home or self-care (01) ==
LOC: ER 18:40 → 2ND 18:40
PROVIDERS: ADMIT Emergency Medicine; ATTEND Internal Medicine Adolescent Medicine
CPT/HCPCS: 36415; 71010; 71045; 80048; 80053; 82803; 83605; 84484; 85025; 87040; 93005; 94640; 94760; 94761; 96367; 96374; 99284; G0378; J1956

== ENCOUNTER → 2019-12-09 14:13 | Outpatient (CLI) | payer MEDICARE, MEDICAID, SELFPAY ==
--- NOTE | 2019-12-09 14:21 | CT_ITS ---
PROCEDURE: CT CHEST W CON CLINCAL INDICATION: LUNG NODULE, ABN FINDING ON CT SCAN Follow-up lung nodule COMPARISON: LUNGSCREEN CT lung screening from 11/26/2018 TECHNIQUE: IV Contrast: 75ml Optiray 350 Axial images obtained with sagittal and coronal reformats. All CT scans at the facility use one or more dose reduction, viz: automated exposure control, ma/kV adjustment per patient size (including targeted exams where dose is matched to indication, i.e. head), or iterative reconstruction technique. FINDINGS: HEART AND MEDIASTINAL STRUCTURES: There is mild dilatation the right main pulmonary artery measuring approximately 3.2 cm. Coronary artery calcifications are present. The LUNGS AND PLEURAL SPACES: COPD with centrilobular emphysema and scattered areas of scarring. 8 mm nodular density within the lingula once again noted not significantly changed. No new nodules are evident. BONY STRUCTURES: No acute bony abnormalities apparent. UPPER ABDOMEN: Approximately 50 percent stenosis of the ostium of the celiac artery calcific plaque. Mild thickening of the distal esophagus nonspecific ADDITIONAL FINDINGS: No other significant abnormalities. IMPRESSION: COPD. Overall stable CT appearance of the chest. No change in the 8 mm lingular nodule with COPD, centrilobular emphysema, and old granulomatous disease with scattered areas of scarring. Continued screening LD CT suggested Dictated by: Hubert Valdivia MD 12/10/2019 13:21 Electronically signed by Hubert Valdivia MD in [place] 12/10/2019 13:21
== END ==
PROVIDERS: PCP Internal Medicine Adolescent Medicine; Visit Provider Internal Medicine Adolescent Medicine
DX: R93.89 Abnormal findings on diagnostic imaging of other specified body structures (principal); R91.1 Solitary pulmonary nodule
CPT/HCPCS: 71260; Q9967

== ENCOUNTER 2020-03-16 10:18 | Emergency (ER) | payer MEDICARE, SELFPAY ==
[2020-03-16 10:30] VITALS: BP 131/64; PULSE 103; RESP 20; TEMP 36.7; O2SAT 94; BMI 25.7
[2020-03-16 10:44] LABS: Apearance,Urine Cloudy (Clear); Color,Urine Dark Yellow (Yellow); Ketones,Urine TRACE (Negative); PH,Urine 5.5 (5.0-8.5); Protein,Urine 3+ (Negative); Specific Gravity, Urine 1.025 (1.005-1.030)
[2020-03-16 10:45] LABS: Bilirubin,Urine 1+ (Negative); Blood, Urine 2+ (Negative); Glucose,Urine (UA) Negative (Negative); UTC Leukocyte Esterase,Urine 1+ (Negative); UTC Nitrate,Urine Positive (Negative); Urobilinogen,Urine 4 EU/dl (0.2)
--- NOTE | 2020-03-16 10:48 | HMH.EDUTC ---
[facility] [place] Clinical Impression: UTI (urinary tract infection) Qualifiers: Urinary tract infection type: site unspecified Hematuria presence: with hematuria Qualified Code(s): N39.0 - Urinary tract infection, site not specified Nausea & vomiting Qualifiers: Vomiting type: unspecified Vomiting Intractability: unspecified Qualified Code(s): R11.2 - Nausea with vomiting, unspecified Disposition: Home, Self-Care Condition on Discharge: Good Instructions: Urinary Tract Infection, DI for Urinary Tract Infection (UTI), Nausea and Vomiting-Adult, Ondansetron, Nitrofurantoin Additional Instructions: *Increase fluids. Water not Soda or Tea *Start antibiotic immediately and be sure to take as ordered for the FULL length of time although you should start to see improvement over the next 48 hours *Pyridium as needed Remember this medication will turn your urine [place]. This is normal but it will stain what ever it gets on *You should not use Pyridium for more than 48 hours. If so , follow up with your primary physician to review urine culture and ensure that antibiotic is adequate for infection *Be SURE to follow up anytime for new or worsening symptoms with your family doctor. AND in 48 hours for urine culture results with your family doctor, if you do not have a doctor then you may call back to the [facility] for urine culture results and further treatment. We do recommend that you choose and establish care with a Primary Care Physician. AND follow up with them in 10-14 days to repeat UA to ensure infection is resolved and blood no longer present *Be sure to let your PCP know that we sent urine cultures from the [facility] so they can follow up to ensure that you area the on the correct antibiotic Call your doctor office and make appointment for 48 hours (2 days from today) to follow up and get the results of your urine culture and further treatment ? Avoid fruit juices, as these do not replace minerals and can actually increase diarrhea. ? Children and adults can use sports drinks to replenish electrolytes. Younger children and infants should use products formulated for children, like oral rehydration solutions. ? Eat food in small amounts and let your stomach recover. ? Get lots of rest. You may feel tired or weak. ? No greasy or fried foods for the next 24-48 hours BRAT diet Bananas Rice Apples and [place] ? Make sure to drink plenty of liquids ? Return if needed ? Straight to ER if any life threatening symptoms ? Zofran as prescribed Prescriptions: Nitrofurantoin Monohyd/M-Cryst [Macrobid 100 mg Capsule] 100 mg PO BID 10 Days #20 cap Transmission Status: Received by [id number] Phenazopyridine HCl [Pyridium 200mg Tablet] 200 pow PO TID #6 tab Transmission Status: Received by [id number] Ondansetron [Zofran 4mg ODT] 4 mg PO TIDP PRN #6 tab PRN Reason: Nausea And Vomiting Transmission Status: Received by [id number] Referrals: Henrik Hand MD [Primary Care Provider] - As needed Time of Disposition: 11:05 Medical Decision Making - Braulio Inquiry Pt receiving controlled substance: No Braulio was queried for this patient: No Vital Signs: 03/16/20 10:30 03/16/20 11:15 Temperature 98.0 F 98.0 F Temperature Source Oral Oral Pulse Rate 103 H Pulse Rate [Radial] 103 H Respiratory Rate 20 20 Blood Pressure 131/64 Blood Pressure [Right Arm] 131/64 Blood Pressure Mean [Right Arm] 86 Blood Pressure Source Automatic Cuff Blood Pressure Source [Right Arm] Automatic Cuff Blood Pressure Position Sitting Blood Pressure Position [Right Arm] Sitting 02 Sat by Pulse Oximetry 94 L Oxygen Delivery Method Room Air Room Air - Lab Data Lab results reviewed: Yes: I reviewed the patient's lab results. Lab Results 03/16/20 10:33: Urine Color Dark yellow, Urine Appearance Cloudy, Urine pH 5.5, Ur Specific [place] 1.025, Urine Protein 3+, Urine Glucose (UA) Negative, Urine Ketones Trace, Urine Blood 2+, Ur
[2020-03-16 11:15] VITALS: BP 131/64; PULSE 103; RESP 20; TEMP 36.7; O2SAT 94
== END 2020-03-16 11:22 | disposition home or self-care (01) ==
PROVIDERS: Emergency Provider Nurse Practitioner; PCP Internal Medicine Adolescent Medicine
DX: N30.00 Acute cystitis without hematuria (principal); J44.9 Chronic obstructive pulmonary disease, unspecified; E78.5 Hyperlipidemia, unspecified; Z87.891 Personal history of nicotine dependence
CPT/HCPCS: G0463; 81003; 87086; 87088; 87186; 96372; 99201

== ENCOUNTER 2020-05-08 16:38 | Emergency (ER) | payer MEDICARE, SELFPAY ==
[2020-05-08 16:45] VITALS: BP 144/70; PULSE 88; RESP 18; TEMP 36.8; O2SAT 92; BMI 25.7
[2020-05-08 16:52] VITALS: BP 144/70; PULSE 88; RESP 18; TEMP 36.8; O2SAT 92; BMI 25.9
--- NOTE | 2020-05-08 16:56 | HMH.EDUTC ---
[facility] – [place] Clinical Impression: Avulsion of skin of finger Qualifiers: Encounter type: initial encounter Qualified Code(s): S61.209A - Unspecified open wound of unspecified finger without damage to nail, initial encounter Rheumatoid arthritis Qualifiers: Rheumatoid arthritis location: unspecified site Rheumatoid factor presence: unspecified presence Qualified Code(s): M06.9 - Rheumatoid arthritis, unspecified Disposition: Still a Patient Condition on Discharge: Undetermined Referrals: Henrik Hand MD [Primary Care Provider] - Time of Disposition: 17:11 Medical Decision Making - Braulio Inquiry Pt receiving controlled substance: No Vital Signs: 05/08/20 16:45 05/08/20 16:52 Temperature 98.3 F 98.3 F Temperature Source Oral Oral Pulse Rate [Left Radial] 88 88 Respiratory Rate 18 18 Blood Pressure [Left Arm] 144/70 H 144/70 H Blood Pressure Mean [Left Arm] 94 94 Blood Pressure Source [Left Arm] Automatic Cuff Automatic Cuff Blood Pressure Position [Left Arm] Sitting Sitting 02 Sat by Pulse Oximetry 92 L 92 L Oxygen Delivery Method Room Air Room Air Medical Decision Narrative: Asked Dr Ferraro if he would come to [facility] and advise on management as daughter was expressing concerns about skin grafts, cauterization, skin contractures, etc and he stated to just send the patient to the ER to be seen - he would not do consults in the [facility]. Patient was transferred to ER to be evaluated. [facility] [place] HPI - General Stated complaint: 05/08 11:30 Lac little finger Time Seen by Provider: 05/08/20 17:05 Mode of Arrival: Ambulatory Source of Information: Patient Limitations: No Limitations Description of Symptoms (Recalled from Triage Doc. by RN): Pt reports approx 1130 am to she got her finger caught between the refridgerator and cabinet ripping the skin of her R 5th finger. Pt states has had trouble getting finger to stopping bleeding even with applying pressure. HEENT Symptoms (Recalled from RN notes): No Resp Symptoms (Recalled from RN notes): No Skin Symptoms (Recalled from RN notes): Yes MS Symptoms (Recalled from RN notes): No Functional Status (Recalled from RN notes): wnl - History of Present Illness Provider Complaint: Patient caught right 5th digit between counter and refrigerator this am while cleaning. She avulsed a section of skin and has had trouble getting it to stop bleeding. She has a history of RA and daughter is concerned that she might need cauterization and/or a skin graft. She is unsure of when her last tetanus shot was. Onset (ago): hour(s) (6) Location: right, upper extremity Radiation: non-radiation Relieving factors: none Exacerbating factors: none Associated symptoms: denies other symptoms Treatments prior to arrival: none - Related Data Home Medications Medication Instructions Recorded Confirmed albuterol sulfate 90 mcg/actuation 2 puff INHALATION QIDP PRN 08/15/17 03/23/19 aerosol inhaler alendronate 70 mg tablet 70 mg PO WEEKLY 08/15/17 03/23/19 calcium carbonate 600 mg calcium 600 mg PO DAILY tab 08/15/17 03/23/19 (1,500 mg) tablet lovastatin 40 mg tablet 80 mg PO DAILY tab 08/15/17 03/23/19 Desloratadine/Pseudoephedrine 1 each PO DAILY 03/22/19 03/22/19 [Clarinex-D 12 Hour Tablet] Fluticasone Propionate [Flonase 1 spr NS BID 03/22/19 03/22/19 50mcg nasal spray 16gm] Previous Rx's Medication Instructions Recorded Fluticasone/Umeclidin/Vilanter 1 each IH DAILY 30 Days #1 03/24/19 [Trelegy Ellipta 100-62.5-25] blst.w.dev Ipratropium/Albuterol Sulfate 3 ml IH Q4HP PRN 10 Days #60 03/24/19 [Duoneb 3mL neb] ampul.neb levoFLOXacin [Levaquin 500mg 500 mg PO 1700 3 Days #3 tab 03/24/19 tab] predniSONE [Deltasone 10mg tablet] 40 mg PO DAILY 3 Days #12 tab 03/24/19 levoFLOXacin [Levaquin 500mg 500 mg PO DAILY #5 tab 05/09/19 tab] Nitrofurantoin Monohyd/M-Cryst 100 mg PO BID 10 Days #20 cap 03/16/20 [Macrobid 100 mg Capsule] Ondansetron
[2020-05-08 17:03] VITALS: BP 144/70; PULSE 88; RESP 18; TEMP 36.8; O2SAT 92; BMI 25.9
--- NOTE | 2020-05-08 17:08 | HMH.EDGENADL ---
ED Disposition Clinical Impression: Rheumatoid arthritis Avulsion of skin of finger Qualifiers: Encounter type: initial encounter Qualified Code(s): S61.209A - Unspecified open wound of unspecified finger without damage to nail, initial encounter Disposition: Home, Self-Care Condition on Discharge: Good Additional Instructions: Keep hand elevated today. Clean the wound gently with soap and water daily and apply antibiotic ointment and a bandage. Continue this daily until healed which will typically take 2 to 4 weeks. Return to the emergency room if increasing pain, swelling, redness, red streaks, pus drainage, or fever. Referrals: Henrik Hand MD [Primary Care Provider] - - Critical Care Critical Care Time: No Attestation: On 05/08/20, the high probability of a clinically significant, sudden or life threatening deterioration of the following system(s) required my full and direct attention, intervention and personal management. The time I documented below is in addition to time spent performing reported procedures but includes the following listed in this critical care notation. Medical Decision Making - Braulio Inquiry Pt receiving controlled substance: No Vital Signs: 05/08/20 16:45 05/08/20 16:52 05/08/20 17:03 Temperature 98.3 F 98.3 F 98.3 F Temperature Source Oral Oral Oral Pulse Rate [Left Radial] 88 88 88 Respiratory Rate 18 18 18 Blood Pressure [Left Arm] 144/70 H 144/70 H 144/70 H Blood Pressure Mean [Left Arm] 94 94 94 Blood Pressure Source [Left Arm] Automatic Cuff Automatic Cuff Blood Pressure Position [Left Arm] Sitting Sitting 02 Sat by Pulse Oximetry 92 L 92 L 92 L Oxygen Delivery Method Room Air Room Air Room Air Orders (Tests/Meds): ED MEDICATIONS Discontinued Medications Generic Name Dose Route Start Last Admin Trade Name Freq PRN Reason Stop Dose Admin Neomycin/Polymyxin/Bacitracin 1 each 05/08/20 17:13 05/08/20 17:19 Neosporin Ointment 0.9gm Udp TP 05/08/20 17:14 1 each ONCE ONE Administration Tetanus/Diphtheria Toxoids 0.5 ml 05/08/20 17:08 05/08/20 17:11 Tetanus-Diphth Toxoid, Adult 0.5ml Syr IM 05/08/20 17:09 0.5 ml .ONCE ONE Administration Medical Decision Narrative: The wound is now hemostatic, no longer bleeding. It is partial-thickness and should heal with cleansing and bandaging. The wound will be cleansed and bandaged in the emergency department and the patient should repeat this daily until healed. General Adult HPI - General Chief complaint: Skin/Abscess/Foreign Body Stated complaint: 05/08 11:30 Lac little finger Time Seen by Provider: 05/08/20 17:08 Mode of Arrival: Ambulatory Source of Information: Patient Limitations: No Limitations Description of Symptoms (Recalled from ER Triage Doc. by RN): Pt reports approx 1130 am to she got her finger caught between the refridgerator and cabinet ripping the skin of her R 5th finger. Pt states has had trouble getting finger to stopping bleeding even with applying pressure. - History of Present Illness HPI narrative: The patient has a skin wound to her right small finger sustained when she caught her finger between a refrigerator and a cabinet. She was seen in the urgent treatment center and was transferred to the emergency department for management due to family/patient concern and uncertainty about what the treatment should be. She is uncertain of her last tetanus immunization. She was also concerned that it was still bleeding. She is not on blood thinners. Onset (ago): hour(s) (6) Location: right, upper extremity Relieving factors: none Exacerbating factors: none Associated symptoms: denies other symptoms Treatments prior to arrival: none - Related Data Home Medications Medication Instructions Recorded Confirmed albuterol sulfate 90 mcg/actuation 2 puff INHALATION QIDP PRN 08/15/17 03/23/19 aerosol inhaler alendronate 70 mg tablet 70 mg PO WEEKLY 08/15/17
[2020-05-08 17:29] VITALS: BP 144/70; PULSE 88; RESP 18; TEMP 36.8; O2SAT 94
== END 2020-05-08 17:30 | disposition home or self-care (01) ==
LOC: UTC 16:50 → ER 17:01
PROVIDERS: Emergency Provider Emergency Medicine; PCP Internal Medicine Adolescent Medicine
DX: S61.216A Laceration without foreign body of right little finger without damage to nail, initial encounter (principal); W23.0XXA Caught, crushed, jammed, or pinched between moving objects, initial encounter; Y92.010 Kitchen of single-family (private) house as the place of occurrence of the external cause; Z23 Encounter for immunization; M06.9 Rheumatoid arthritis, unspecified; E78.5 Hyperlipidemia, unspecified; J44.9 Chronic obstructive pulmonary disease, unspecified; Z87.891 Personal history of nicotine dependence; Z79.899 Other long term (current) drug therapy
CPT/HCPCS: 90714; 99281

== ENCOUNTER 2021-06-07 11:02 | Emergency (ER) | payer MEDICARE, MEDICAID, SELFPAY ==
[2021-06-07] VITALS (8 sets, daily range): BP systolic 122–136; BP diastolic 63–72; PULSE 75–100; RESP 18–20; TEMP 36.7; O2SAT 92–96; BMI 25.4
--- NOTE | 2021-06-07 11:16 | XR_ITS ---
PROCEDURE: XR CHEST PORTABLE CLINICAL HISTORY: productive cough, SOA COMPARISON: CR XR CHEST PORTABLE from 03/22/[address] CHEST W CON from 12/09/2019 FINDINGS: The cardiomediastinal silhouette and pulmonary vascularity are within normal limits. COPD changes. No lobar consolidation or collapse. Minimal blunting of the left CP angle No acute bony abnormalities. IMPRESSION: COPD. No acute finding. Dictated by: Hubert Valdivia MD 06/07/2021 11:42 Hubert Valdivia MD in [place] 06/07/2021 11:42
--- NOTE | 2021-06-07 11:28 | HMH.EDCP ---
ED Disposition Clinical Impression: COPD exacerbation Disposition: Home, Self-Care Condition on Discharge: Good Referrals: Henrik Hand MD [Primary Care Provider] - - Critical Care Critical Care Time: No Attestation: On 06/07/21, the high probability of a clinically significant, sudden or life threatening deterioration of the following system(s) required my full and direct attention, intervention and personal management. The time I documented below is in addition to time spent performing reported procedures but includes the following listed in this critical care notation. Medical Decision Making - Braulio Inquiry Pt receiving controlled substance: No Vital Signs: 06/07/21 11:03 06/07/21 11:54 Temperature 98.0 F Temperature Source Oral Pulse Rate 95 H Pulse Rate [Right Radial] 92 H Respiratory Rate 20 Blood Pressure [Right Arm] 131/68 Blood Pressure Mean [Right Arm] 89 Blood Pressure Source [Right Arm] Automatic Cuff Blood Pressure Position [Right Arm] Sitting 02 Sat by Pulse Oximetry 96 95 Oxygen Delivery Method Room Air Nasal Cannula Oxygen Flow Rate (LPM) 2 - Lab Data Lab Results 06/07/21 11:25: Sodium 136, Potassium 4.2, Chloride 91 L, Carbon Dioxide 39 H, Anion Gap 10.2, BUN 14, Creatinine 0.40 L, Estimated Creat Clear 47, Estimated GFR 156, Est GFR ( Amer) 189, Glucose 133 H, Calcium 9.9, Total Bilirubin 0.4, AST 29, ALT 17, Alkaline Phosphatase 94, Total Protein 7.4, Albumin 4.3, Globulin 3.1, Albumin/Globulin Ratio 1.4 06/07/21 11:25: Lactate 0.8 06/07/21 11:25: WBC 10.0, RBC 4.89, Hgb 15.3, Hct 47.2 H, MCV 96.6, MCH 31.3 H, MCHC 32.4, RDW 12.8, Plt Count 217, MPV 8.7, Neut % (Auto) 83.3 H, Lymph % (Auto) 11.0, [place] % (Auto) 3.6, Eos % (Auto) 1.2, Baso % (Auto) 0.8, Neut # (Auto) 8.3 H, Lymph # (Auto) 1.1, [place] # (Auto) 0.4, Eos # (Auto) 0.1, Baso # (Auto) 0.1 06/07/21 11:38: SARS-CoV-2 (PCR) Not detected, Influenza A Untype (PCR) Not detected, Influenza Type B (PCR) Not detected Result diagrams: 06/07/21 11:25 06/07/21 11:25 Orders (Tests/Meds): ED MEDICATIONS Generic Name Dose Route Start Last Admin Trade Name Freq PRN Reason Stop Dose Admin Azithromycin 500 mg/ Sodium 250 mls @ 250 mls/hr 06/07/21 11:30 06/07/21 11:46 Chloride IV 06/21/21 11:29 250 mls/hr Q24H AMIRA Administration Discontinued Medications Generic Name Dose Route Start Last Admin Trade Name Freq PRN Reason Stop Dose Admin Albuterol/Ipratropium 3 ml 06/07/21 11:27 06/07/21 11:54 Ipratropium/Albuterol 3 Ml Neb IH 06/07/21 11:28 3 ml ONCE ONE Administration Methylprednisolone Sodium Succinate 125 mg 06/07/21 11:27 06/07/21 11:46 Methylprednisolone Sod Succ 125mg Vial IV 06/07/21 11:28 125 mg ONCE ONE Administration ORDERS Category Date Time Status Complete Blood Count Auto Diff Stat Lab 06/07/21 11:16 Ordered Blood Culture Stat Micro 06/07/21 11:30 Received Medical Decision Narrative: Patient has normal vital signs on reassessment. Patient is in no respiratory distress, comfortable, speaking full sentences. On reassessment, the patient continues to endorse no chest pain, back pain, abdominal pain. Symptomatic improvement with nebulizer. Likely COPD exacerbation, recommended short-term follow-up and will discharge on azithromycin and prednisone. Chest Pain HPI - General Chief Complaint: Shortness of Breath/Dyspnea Stated Complaint: soa, weakness, cough, DONNELLY, congestion Time Seen by Provider: 06/07/21 11:29 Mode of Arrival: Ambulatory Limitations: No Limitations - History of Present Illness HPI narrative: Patient is a 71-year-old female with a history of COPD presenting with 4 to 5 days of increased cough, and sputum production. Patient endorses decreased mobility secondary to dyspnea. No reported fevers. Patient reports positive Covid in January. Patient is unvaccinated. No reports of chest pain, abdominal pain, nausea, vomiting, urinar
[2021-06-07 11:51] LABS: Lactic Acid 0.8 mmol/L (0.7-2.1)
[2021-06-07 11:55] LABS: Basophils # 0.1 K/mm3 (0-0.2); Basophils % 0.8 % (0.1-2.0); Eosinophils # 0.1 K/mm3 (0.0-0.4); Eosinophils % 1.2 % (0.1-12.0); Hematocrit 47.2 % (37.0-47.0); Hemoglobin 15.3 g/dL (12.2-16.2); Lymphocytes # 1.1 K/mm3 (0.7-4.5); Mean Corpuscular HGB Conc 32.4 g/dL (31.8-35.4); Mean Corpuscular Hemoglobin 31.3 pg (27.0-31.2); Mean Corpuscular Volume 96.6 fl (81-99); Mean Platelet Volume 8.7 fl (7.4-10.4); Monocytes # 0.4 K/mm3 (0.1-1.0); Monocytes % 3.6 % (1.7-9.3); Neutrophils # 8.3 K/mm3 (1.8-7.8); Neutrophils % 83.3 % (37.0-80.0); Platelet Count 217 K/mm3 (142-424); Red Blood Count 4.89 M/mm3 (4.20-5.40); Red Cell Distribution Width 12.8 % (11.5-17.5)
[2021-06-07 12:05] LABS: Alanine Aminotransferase 17 U/L (12-78); Albumin Level 4.3 g/dl (3.5-5.0); Albumin/Globulin Ratio 1.4 (1.1-1.8); Alkaline Phosphatase 94 U/L (38-126); Aspartate Amino Transferase 29 U/L (14-36); Bilirubin,Total 0.4 mg/dl (0.2-1.3); Blood Urea Nitrogen 14 mg/dl (7-17); Calcium 9.9 mg/dl (8.4-10.2); Chloride 91 mmol/L (98-107); Creatinine Clearance Estimated 47 mL/min (50-200); Estimated Glomerular Filt Rate 156 ml/min (>60); GFR (African American) 189 ML/MIN (>60); Globulin 3.1 g/dL (1.3-3.2); Glucose 133 mg/dl (74-100); Potassium 4.2 mmoL/L (3.5-5.1); Sodium 136 mmol/L (136-145); Total Protein,Serum 7.4 g/dl (6.3-8.2)
[2021-06-07 12:11] LABS: Anion Gap 10.2 mEq/L (5-15); Carbon Dioxide 39 mmol/L (22.0-30.0)
[2021-06-07 12:30] LABS: Coronavirus 19, PCR Not Detected (NotDetected); Influenza A, PCR Not Detected (NotDetected); Influenza B, PCR Not Detected (NotDetected)
== END 2021-06-07 14:36 | disposition home or self-care (01) ==
PROVIDERS: Emergency Provider Internal Medicine Critical Care Medicine; PCP Internal Medicine Adolescent Medicine
DX: J44.1 Chronic obstructive pulmonary disease with (acute) exacerbation (principal); E78.5 Hyperlipidemia, unspecified; Z20.822 Contact with and (suspected) exposure to COVID-19; F17.210 Nicotine dependence, cigarettes, uncomplicated
CPT/HCPCS: 71045; 80053; 83605; 85025; 87040; 96365; 96375; 99284; C9803; J0456; U0003; U0005

== ENCOUNTER → 2021-06-22 07:42 | Outpatient (CLI) | payer MEDICARE, MEDICAID, SELFPAY ==
--- NOTE | 2021-06-22 07:45 | CT_ITS ---
FINAL REPORT CLINICAL HISTORY: H/O NICOTINE DEPENDENCE COMPARISON: 12/09/2019 FINDINGS: Axial images were obtained from the lung apex to the mid abdomen by computed tomography. Low-dose protocol was utilized. CTDl vol(mGy): 2.90 DLP (mGy-cm): 100.03 FINDINGS: There is no axillary adenopathy. There is no hilar or mediastinal adenopathy. The heart size is normal. There is no pericardial or pleural effusion. Limited images of the upper abdomen are unremarkable. Lung window images demonstrate mild emphysema and moderate scarring. There are several calcified granulomas. There are new lingular opacities measuring up to 8 mm, well seen on image 43. There are new posterior left lower lobe opacities favored to be inflammatory. IMPRESSION: Lung RADS category 4B. Recommend 1 month follow-up low-dose chest CT as opacities are favored to be inflammatory. Reviewed, Interpreted and Dictated by Obey Howard III, MD Transcribed by Evy Kay Authenticated by Obey Howard III, MD on 06/22/2021 09:24:51 AM [facility]
--- NOTE | 2021-06-22 07:47 | MM_ITS ---
PROCEDURE INFORMATION: Exam: MG Bilateral Screening 3D Mammography Exam date and time: 06/22/2021 7:47 AM Age: 71 years old Clinical indication: Encounter for screening mammogram for malignant neoplasm of breast . Family history of breast carcinoma. TECHNIQUE: Imaging protocol: Screening tomosynthesis and 2D mammography including computer-aided detection (CAD) when performed. COMPARISON: 1. MG SCBI MM Dig screening mamm BI w/CAD 07/25/2018 9:04 AM 2. MG SCBI MM Dig screening mamm BI w/CAD 07/23/2017 9:06 AM 3. MG DMSB DIG MAMM-SCREEN RAINE 03/12/2016 3:58 PM FINDINGS: MAMMOGRAPHY: Breast composition: The breasts are heterogeneously dense, which may obscure small masses. Mass: No suspicious masses. Architectural distortion: No suspicious distortion. Calcifications: No suspicious calcifications. Asymmetric density: None. Skin thickening: None. Axillary adenopathy: None. IMPRESSION: No mammographic evidence of malignancy. Annual screening is recommended unless otherwise clinically indicated. ASSESSMENT: BI-RADS Category 1: Negative
--- NOTE | 2021-06-22 07:48 | XR_ITS ---
FINAL REPORT TECHNIQUE: Bone densitometry calculations of the lumbar spine and left hip were obtained. CLINICAL HISTORY: . osteoporosis, post menopausal FINDINGS: Using L1-4, the bone mineral density of the spine is 0.887 g/cm2, corresponding to T-score of -1.5. Using the left hip, the bone mineral density of the femoral neck is 0.506 g/cm2, corresponding to a T-score of -3.1. NOTE: T-score: Standard deviation compared with peak bone mass of young adult mean. *Following the recommendations of the International Society of Bone Densitometry, classification of hip BMD is based on the lower of two T-scores; total hip or femoral neck. IMPRESSION: Osteoporosis: Lowest T-score is at or below -2.5. This patient's T-score meets the World Health Organization criteria for osteoporosis. Reviewed, Interpreted and Dictated by Obey Howard III, MD Transcribed by Anne Antoine Authenticated by Obey Howard III, MD on 06/22/2021 11:21:50 AM [facility]
[2021-06-22 09:08] LABS: Basophils # 0.2 K/mm3 (0-0.2); Basophils % 1.5 % (0.1-2.0); Eosinophils # 0.1 K/mm3 (0.0-0.4); Eosinophils % 0.9 % (0.1-12.0); Hematocrit 42.8 % (37.0-47.0); Hemoglobin 14.2 g/dL (12.2-16.2); Lymphocytes # 1.3 K/mm3 (0.7-4.5); Lymphocytes % 12.9 % (10-50); Mean Corpuscular HGB Conc 33.1 g/dL (31.8-35.4); Mean Corpuscular Hemoglobin 31.3 pg (27.0-31.2); Mean Corpuscular Volume 94.3 fl (81-99); Mean Platelet Volume 8.8 fl (7.4-10.4); Monocytes # 0.5 K/mm3 (0.1-1.0); Neutrophils % 79.7 % (37.0-80.0); Platelet Count 292 K/mm3 (142-424); Red Blood Count 4.53 M/mm3 (4.20-5.40); Red Cell Distribution Width 12.9 % (11.5-17.5); White Blood Count 10.1 K/mm3 (4.8-10.8)
[2021-06-22 10:17] LABS: Alanine Aminotransferase 14 U/L (12-78); Albumin Level 3.9 g/dl (3.5-5.0); Albumin/Globulin Ratio 1.5 (1.1-1.8); Alkaline Phosphatase 104 U/L (38-126); Anion Gap 9.2 mEq/L (5-15); Aspartate Amino Transferase 21 U/L (14-36); Bilirubin,Total 0.4 mg/dl (0.2-1.3); Blood Urea Nitrogen 11 mg/dl (7-17); Calcium 9.6 mg/dl (8.4-10.2); Carbon Dioxide 38 mmol/L (22.0-30.0); Chloride 93 mmol/L (98-107); Chol/HDL Ratio 4.7 (1-3.5); Cholesterol 254 mg/dl (140-200); Estimated Glomerular Filt Rate 121 ml/min (>60); GFR (African American) 146 ML/MIN (>60); Globulin 2.6 g/dL (1.3-3.2); Glucose 109 mg/dl (74-100); HDL Cholesterol 54 mg/dl (40-60); Potassium 4.2 mmoL/L (3.5-5.1); Sodium 136 mmol/L (136-145); Total Protein,Serum 6.5 g/dl (6.3-8.2); Triglycerides 188 mg/dl (30-150); VLDL Cholesterol 38 mg/dL (0-40)
[2021-06-22 10:28] LABS: Direct LDL Cholesterol 166.69 mg/dL (100-129)
[2021-06-22 10:32] LABS: 25-OH Vitamin D, Total 26.4 ng/mL (30-100)
[2021-06-22 11:05] LABS: Vitamin B12 904 pg/mL (239-931)
== END ==
PROVIDERS: PCP Internal Medicine Adolescent Medicine; Visit Provider Nurse Practitioner Family
DX: Z87.891 Personal history of nicotine dependence (principal); Z12.2 Encounter for screening for malignant neoplasm of respiratory organs; Z12.31 Encounter for screening mammogram for malignant neoplasm of breast; Z13.820 Encounter for screening for osteoporosis; E78.5 Hyperlipidemia, unspecified; J42 Unspecified chronic bronchitis; E53.8 Deficiency of other specified B group vitamins; E55.9 Vitamin D deficiency, unspecified; M81.0 Age-related osteoporosis without current pathological fracture
CPT/HCPCS: 36415; 71271; 77063; 77067; 77080; 80053; 80061; 82306; 82607; 85025

== ENCOUNTER → 2021-07-24 10:39 | Outpatient (CLI) | payer MEDICARE, MEDICAID, SELFPAY ==
[2021-07-24 12:33] LABS: Blood Urea Nitrogen 20 mg/dl (7-17); Estimated Glomerular Filt Rate 121 ml/min (>60); GFR (African American) 146 ML/MIN (>60)
== END ==
PROVIDERS: PCP Nurse Practitioner Family; Visit Provider Nurse Practitioner Family
DX: R91.1 Solitary pulmonary nodule (principal)
CPT/HCPCS: 36415; 82565; 84520

== ENCOUNTER → 2021-07-25 12:37 | Outpatient (CLI) | payer MEDICARE, MEDICAID, SELFPAY ==
--- NOTE | 2021-07-25 12:43 | CT_ITS ---
FINAL REPORT CLINICAL HISTORY: LUNG NODULE prior 06-22-21 COMPARISON: June 22, 2021 FINDINGS: Axial CT images of the chest were obtained with contrast. Coronal reformatted images were also obtained. This study was performed with techniques to keep radiation doses as low as reasonably achievable, (ALARA). Individualized dose reduction techniques using automated exposure control or adjustment of mA and/or KV according to the patient''''s size were employed. There is no evidence of mediastinal or hilar mass or adenopathy.No axillary mass or adenopathy is identified. On lung window images, there are mild changes of emphysema with mild scarring. There has been interval resolution of an 8 mm anterior lingular nodule. A 4 mm nodule along the left heart border previously measured 6 mm. There are calcified granulomas in both lungs. There is persistent but improved left lung base opacity. Limited images of the upper abdomen reveal no mass or localized inflammatory process. IMPRESSION: Improved lingular nodules. Recommend continued annual screening. Reviewed, Interpreted and Dictated by Obey Howard III, MD Transcribed by Daniel Clark Authenticated by Obey Howard III, MD on 07/25/2021 02:35:[address] [facility] [place]
== END ==
PROVIDERS: PCP Internal Medicine Adolescent Medicine; Visit Provider Nurse Practitioner Family
DX: R91.1 Solitary pulmonary nodule (principal)
CPT/HCPCS: 71260; Q9967

== ENCOUNTER → 2022-06-05 11:41 | Outpatient (CLI) | payer MEDICARE, MEDICAID, SELFPAY ==
--- NOTE | 2022-06-05 | CA_ITS ---
APPROVED REPORT Exam: Pharmacologic Technologist: Olivia Mayorga Ht: 5 ft 0 in Wt: 138 lbs BSA: 1.59 m2 HR: 80 bpm BP: 127/65 mmHg Indications: Chest pain Medical History Medications: Lovastatin,,,,, Flonase,,,,, Albuterol,,,,, Calcium,,,,, Alendronate,,,,, ClARInex D,,,,, Stress Test Details Test: LEXISCAN HR Resting HR: 83 bpm Max Heart Rate (APMHR): 146.271345 bpm Max HR Achieved: 103 bpm Target HR (85% APMHR): 124.924626 bpm % of APMHR: 70.55 Recovery HR: 92 bpm BP Resting BP: 127.0/65.0 mmHg Max BP: 145.0/58.0 mmHg Recovery BP: 124.0/59.0 mmHg ECG Resting ECG: Normal sinus rhythm Clinical Exercise duration: 04:00 min Highest Stage Achieved: Exercise capacity: 1.0 METs Stress ECG Conclusion Symptoms: Shortness of air. No chest pain. Arrhythmias/Ectopy: None ST-T Changes: No significant changes. Conclusion: Unremarkable Lexiscan stress. Myoview images reported separately. Test Summary REST . . . . . . . Resting REST 03:33 . . 83 . 127/ 65 . . Stage 1 . . . . . . . Myoview Injected Stage 1 01:00 . . 103 . . . . Stage 2 01:00 . . 99 . 142/ 59 . . Stage 3 01:00 . . 97 . 145/ 58 . . Stage 4 01:00 . . 97 . 130/ 59 . Stop exercise at 04:00 RECOVERY 01:00 . . 91 . 130/ 60 . . RECOVERY 02:00 . . 94 . 130/ 60 . . RECOVERY 03:00 . . 95 . 124/ 59 . . RECOVERY 03:19 . . 92 . 124/ 59 . . Electronically signed by : Cholo Torres MD 06/05/2022 16:01:32
--- NOTE | 2022-06-05 | CA_ITS ---
APPROVED REPORT EXAM: Comprehensive 2D, Doppler, and color-flow Echocardiogram Resistance Welding Machine Operator: Maggie Juarez RT(R) Ht: 5 ft 0 in Wt: 138lbs BSA: 1.59 BP: 125/75 mmHg Indications: CP, COPD, Smoker, hyperlipidemia, SOB, dizziness, fatigue 2D Dimensions LVOT 1.84 cm (M/F) 1.5-2.5 LVEF (Chambers's) 64.80 % F: 54 - 74 LV Volume 60.20 mL F: 46 - 106 LV Volume Index 37.86 mL/m2 F: 29 - 61 LA Volume 24.00 mL LA Volume Index 15.09 mL/m2 (M/F) 16-34 M-Mode Dimensions RVDd 2.54 cm (0.9-2.6) LA Diam 3.24 cm (1.9-4.0) LVDd 3.26 cm (3.5-5.7) Ao Diam 1.91 cm (2.0-3.7) LVDs 2.35 cm (3.5-5.7) IVSd 0.76 cm (0.6-1.1) PWd 0.95 cm (0.6-1.1) EF (Teich) 55.40% FS 27.90% EDV (Teich) 42.80 mL ESV (Teich) 19.10 mL LV Diastology E Decel Time 263.00 (160-240 msec) E/A Ratio 0.8 MED E' 8.40 (< 7 cm/sec) E'/MED E' Ratio 13.49 (>14) LAT E' 8.70 (<10 cm/sec) E/LAT E' Ratio 13.02 (>14) Mitral Valve MV E Max Markel. 113.00 (40-130 cm/s) MV A Velocity 133.00 (40-130 cm/s) E/A Ratio 0.85 MV Decel. Time 263.00 (160-240 ms) MV PHT 77.00 ms Tricuspid Valve TR P. Velocity 303.00 cm/s RAP Estimate 15.00 mmHg RVSP 51.80 mmHg Left Ventricle Left atrium is mildly enlarged, left ventricle is normal size mild concentric left ventricular hypertrophy, estimated ejection fraction 55% with no regional wall motion abnormality, grade 1 diastolic dysfunction seen without tissue Doppler evidence of raise left atrial pressure. Right Ventricle Right atrium and right ventricle are mildly enlarged with normal contractility. Aortic Valve Aortic valve is minimally thickened and fibrosed there is no aortic stenosis or aortic insufficiency. Mitral Valve Mitral valve grossly normal, there is trace mitral regurgitation. Tricuspid Valve Tricuspid grossly normal, there is trace tricuspid regurgitation, tricuspid regurgitation jet velocity is inadequate for calculation of the right ventricular systolic pressure. Pulmonic Valve Pulmonic valve is poorly visualized. Great Vessels Aortic root is normal size. Inferior vena cava is poorly visualized. Pericardium No significant pericardial effusion noted. Conclusion 1. Mild biatrial enlargement, normal left ventricular size, mild concentric left ventricular hypertrophy, estimated ejection fraction 55% with no regional wall motion abnormality, grade 1 diastolic dysfunction seen without tissue Doppler evidence of raise left atrial pressure. 2. Mildly enlarged right ventricle with normal contractility. 3. Trace mitral and tricuspid regurgitation. 4. No significant pericardial effusion noted. 5. Inferior vena cava is poorly visualized. Electronically signed by : Cholo Torres MD 06/05/2022 17:08:52
--- NOTE | 2022-06-05 11:46 | NM_ITS ---
APPROVED REPORT Exam: Nuclear Stress Test Indication: Chest pain, SOB, Palpitations, Syncope, High cholesterol, Tobacco use Patient Location: Outpatient Stress Tech: Olivia Mayorga NM Tech:Sera Williamson, ARRT, RT (R)(N) Ht: 5 ft 0 in Wt: 138 lbs Bra Size: B HR: 83 bpm BP: 127/65 mmHg BSA: 1.59 m2 TID: 1.18 History: Chest pain, SOB, Palpitations, Syncope, High cholesterol, Tobacco use Procedure: Patient received a 0.4 mg of intravenous Lexiscan, resting heart rate 83 bpm, resting blood pressure 127/65 mmHg, with Lexiscan maximum heart rate achived was 103 bpm which is Less than 85 % of the maximum predicted heart rate and blood pressure was 145/58 mmHg. With Lexiscan, patient denied any complaint of chest pain. Electrocardiogram Resting electrocardiogram shows sinus rhythm, with Lexiscan there is less than 1.[address] segment depression noted from the baseline EKG. The EKG portion of the Lexiscan is nondiagnostic. Cardiac Stress and Resting SPECT Images: Cardiac Stress and Resting SPECT images were obtained using technetium 99m Myoview 32.8 mCi stress and 10.57 mCi at rest. Gated SPECT for analysis of segmental wall motion and calculation of the ejection fraction also done, prone images were also obtained. Cardiac stress and resting SPECT images show uniform myocardial activity without segmental perfusion abnormality, computer derived ejection fraction 59% with no regional wall motion abnormality, right ventricle is mildly enlarged with normal contractility. Conclusion: 1. The EKG portion of the Lexiscan is nondiagnostic. 2. No scintigraphic evidence of reversible ischemia seen, computer derived ejection fraction 59% with no regional wall motion abnormality, right ventricle is mildly enlarged with normal contractility. 3. Normal Lexiscan Myoview study. Electronically signed by : Cholo Torres MD 06/05/2022 17:10:22
--- NOTE | 2022-06-05 13:11 | HMH.ITSHM ---
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 []OMEPRAZOLE BUSPIRONE ALBUTEROL TRILOGY LOSARTAN
== END ==
PROVIDERS: PCP Nurse Practitioner Family; Visit Provider Nurse Practitioner Family
DX: R07.9 Chest pain, unspecified (principal); J42 Unspecified chronic bronchitis; Z72.0 Tobacco use
CPT/HCPCS: 78452; 93017; 93306; A9502; J2785

== ENCOUNTER → 2022-09-19 09:15 | Outpatient (CLI) | payer MEDICARE, MEDICAID, SELFPAY ==
--- NOTE | 2022-09-19 09:21 | CT_ITS ---
FINAL REPORT TECHNIQUE: Axial CT images of the chest were obtained without contrast. Low-dose protocol was utilized. This study was performed with techniques to keep radiation doses as low as reasonably achievable (ALARA). Individualized dose reduction techniques using automated exposure control or adjustment of mA and/or kV according to the patient's size were employed. CLINICAL HISTORY: HISTORY OF SMOKING, smoker for 40 years, 7 cigarettes per day COMPARISON: 06/22/2021 FINDINGS: CT CHEST WITHOUT, LOW DOSE SCREENING CT Di Vol: 2.90 mGy DLP: 97.68 mGy*cm There is several small mediastinal nodes which are stable. No axillary mass or adenopathy. The heart size is normal. There are stable severe coronary artery calcifications. There is no pleural or pericardial effusion. The lung windows show no new suspicious mass or nodule. There is bilateral scarring, greatest at the apices. There is mild emphysema. There are bilateral calcified granulomas. The lingular and left lower lobe opacities are improved. Limited images of the upper abdomen are unremarkable. IMPRESSION: No new suspicious mass or nodule. LR Category 1: 12 month follow-up low-dose chest CT is recommended. Reviewed, Interpreted and Dictated by Obey Howard III, MD Transcribed by Mindy Canseco Authenticated and . [facility]
--- NOTE | 2022-09-19 09:21 | XR_ITS ---
FINAL REPORT TECHNIQUE: Bone densitometry calculations of the lumbar spine and hip were obtained. CLINICAL HISTORY: post menopausal COMPARISON: 06/22/2021 FINDINGS: DEXA BONE DENSITY AXIAL SKELETON Using L1-4, the bone mineral density of the spine is 0.893 g/cm2, corresponding to T-score of -1.4. Previously measured 0.931 g/cm2, corresponding to T-score of -1.1. Worse from the prior exam. Using the right hip, the bone mineral density of the femoral neck is 0.476 g/cm2, corresponding to a T-score of -3.4. Previously measured 0.510 g/cm2, corresponding to T-score of -3.1. Worse from the prior exam. NOTE: T-score: Standard deviation compared with peak bone mass of young adult mean. *Following the recommendations of the International Society of Bone densitometry, classification of hip BMD is based on the lower of two T-scores; total hip or femoral neck. IMPRESSION: Osteoporosis: Lowest T-score is at or below -2.5. This patient's T-score meets the World Health Organization criteria for osteoporosis. FRAX not reported because: Some T-score for Spine Total or hip Total or femoral neck at or below -2.5. Reviewed, Interpreted and Dictated by Obey Howard III, MD Transcribed by Anne Antoine Authenticated and [facility]
--- NOTE | 2022-09-19 09:22 | MM_ITS ---
PROCEDURE INFORMATION: Exam: MG Bilateral Screening 3D Mammography Exam date and time: 09/19/2022 9:45 AM Age: 72 years old Clinical indication: Screening mammogram TECHNIQUE: Imaging protocol: Bilateral Screening tomosynthesis and 2D mammography including computer-aided detection (CAD) when performed. COMPARISON: 1. MG MM DIG SCREENING MAMM BI W/CAD 06/22/2021 8:22 AM 2. MG SCBI MM Dig screening mamm BI w/CAD 07/25/2018 9:04 AM 3. MG SCBI MM Dig screening mamm BI w/CAD 07/23/2017 9:06 AM 4. MG DMSB DIG MAMM-SCREEN RAINE 03/12/2016 3:58 PM FINDINGS: MAMMOGRAPHY: Breast composition: There are scattered areas of fibroglandular density. Mass: None. Architectural distortion: No new or suspicious architectural distortion. Calcifications: No new or suspicious calcifications are present Asymmetric density: No new or suspicious asymmetric density is present Skin thickening: None. Axillary adenopathy: None. IMPRESSION: No mammographic evidence of malignancy. Recommend annual screening mammography unless otherwise clinically indicated. ASSESSMENT: BI-RADS category 1: Negative
== END ==
PROVIDERS: PCP Nurse Practitioner Family; Visit Provider Nurse Practitioner Family
DX: Z12.31 Encounter for screening mammogram for malignant neoplasm of breast (principal); Z87.891 Personal history of nicotine dependence; Z12.2 Encounter for screening for malignant neoplasm of respiratory organs; E55.9 Vitamin D deficiency, unspecified; Z78.0 Asymptomatic menopausal state
CPT/HCPCS: 71271; 77063; 77067; 77080

== ENCOUNTER 2022-10-11 12:50 | Outpatient (CLI) | payer MEDICARE, MEDICAID, SELFPAY ==
[2022-10-11 13:00] VITALS: BP 117/68; PULSE 77; RESP 18; TEMP 36.6; O2SAT 95
== END 2022-10-11 13:30 | disposition home or self-care (01) ==
LOC: INF 12:51
PROVIDERS: PCP Nurse Practitioner Family; Visit Provider Nurse Practitioner Family
DX: M81.0 Age-related osteoporosis without current pathological fracture (principal)
CPT/HCPCS: 96372; J0897

== ENCOUNTER → 2022-11-22 12:38 | Outpatient (CLI) | payer MEDICARE, MEDICAID, SELFPAY ==
--- NOTE | 2022-11-22 12:43 | XR_ITS ---
FINAL REPORT CLINICAL HISTORY: LT SHOULDER PAIN FINDINGS: Left shoulder Three views were obtained. There is no acute fracture or dislocation. There are mild degenerative changes of the AC and glenohumeral joints. No soft tissue abnormality is identified. IMPRESSION: Mild degenerative changes. Reviewed, Interpreted and Dictated by Obey Howard III, MD Transcribed by Leighann Worley Authenticated and [facility]
== END ==
PROVIDERS: PCP Nurse Practitioner Family; Visit Provider Nurse Practitioner Family
DX: M25.512 Pain in left shoulder (principal)
CPT/HCPCS: 73030

== ENCOUNTER 2022-12-16 18:40 | Emergency (ER) | payer MEDICARE, MEDICAID, SELFPAY ==
[2022-12-16] VITALS (8 sets, daily range): BP systolic 124–168; BP diastolic 51–95; PULSE 91–105; RESP 21–27; TEMP 37.1–37.7; O2SAT 83–99; BMI 23.0
--- NOTE | 2022-12-16 19:04 | XR_ITS ---
PROCEDURE INFORMATION: Exam: XR Chest Exam date and time: 12/16/2022 7:14 PM Age: 72 years old Clinical indication: Shortness of breath TECHNIQUE: Imaging protocol: Radiologic exam of the chest. Views: 1 view. Total images: 1 COMPARISON: CT LUNG SCREENING 09/19/2022 10:08 AM FINDINGS: Tubes, catheters and devices: EKG leads are present. Lungs: Interval development of diffuse bilateral interstitial and ground-glass opacity with more patchy involvement throughout the left lung. Findings imply acute nonspecific pneumonitis or possible viral pneumonia. No pulmonary vascular congestion. Chronic atelectasis and scarring left lung base. Chronic pleural thickening and scarring left lung base with tenting of the lateral left hemidiaphragm. No pleural effusion. Biapical pleural thickening/scarring. No pneumothorax. Pleural spaces: See Lungs finding. Heart/Mediastinum: Unremarkable. No cardiomegaly. No mediastinal widening or hilar enlargement. Vasculature: Atherosclerotic aortic arch. Bones/joints: Unremarkable. Other findings: Patient rotation to the left. IMPRESSION: 1. Acute diffuse bilateral interstitial and ground-glass opacity with more patchy involvement throughout the left lung. 2. Findings imply acute pneumonitis or atypical viral pneumonia.
--- NOTE | 2022-12-16 19:05 | ECG_ITS ---
APPROVED REPORT Exam: Resting ECG HR:108 bpm ECG Measurements Heart Rate 108 AXES NV 144 P 87 QRSd 100 QRS 82 QT 322 T 78 QTc 385 Conclusion SINUS TACHYCARDIA ABNORMAL RHYTHM ECG UNCONFIRMED REPORT Electronically signed by : Henrik Hand MD 12/17/2022 14:02:48
--- NOTE | 2022-12-16 19:05 | HMH.EDGENADL ---
Discharge Plan Disposition Patient Disposition: Home, Self-Care Condition: Fair Prescriptions Prescriptions: New doxycycline hyclate 100 mg capsule 100 mg PO BID 7 Days Qty: 14 0RF No Action buspirone 10 mg tablet 10 mg PO DAILY meloxicam 15 mg tablet 15 mg PO DAILY Qty: 30 2RF albuterol sulfate [Ventolin HFA] 90 mcg/actuation HFA aerosol inhaler 2 puff INHALATION QIDP PRN (Reason: Shortness Of Breath) lovastatin 40 mg tablet 80 mg PO DAILY ipratropium-albuterol 3 ML solution for nebulization 3 ml inhalation Q4HP PRN (Reason: Shortness Of Breath) 10 Days Qty: 60 5RF [id number] 1 EACH blister with device 1 ea inhalation DAILY Referrals Follow up/Referrals: Mer Isaac APRN [Primary Care Provider] - See instructions Clinical Impressions Clinical Impression: COPD exacerbation, Pneumonia Stand Alone Forms Stand Alone Forms: Transfer Record - ED Instructions Patient Instructions: Pneumonia-Adult, DI for Chronic Obstructive Pulmonary Disease Print Language Print Language: Trinidadian Discharge ED Provider: Ellis Dangelo Adult HPI General Chief complaint: Shortness of Breath/Dyspnea Stated complaint: SOA Time Seen by Provider: 12/16/22 19:05 Mode of Arrival: Wheelchair Source of Information: Patient Limitations: No Limitations Description of Symptoms (Recalled from ER Triage Doc. by RN): PT WITH INCREASED SHORTNESS OF BREATH, BEGAN ON 12/11, WORSENED OVER 2 DAYS. DENIES FEVER. NO CHANGE IN COUGH. PT 83% ON ROOM AIR. 02 APPLIED AT 5L/NC History of Present Illness HPI narrative: Patient presents the emergency department with dyspnea over the last 2 to 3 days. MD complaint: Dyspnea Onset (ago): day(s) (3) Radiation: non-radiation Severity: moderate Consistency: constant Relieving factors: rest and other Exacerbating factors: other (Heat) Related Data Home Medications Medication Instructions Recorded Confirmed albuterol sulfate 90 mcg/actuation 2 puff inhalation QIDP PRN 08/15/17 12/06/22 aerosol inhaler (Ventolin HFA) Shortness Of Breath lovastatin 40 mg tablet 80 mg PO DAILY Cholesterol 08/15/17 12/06/22 fluticasone fur. 100 mcg-umeclid 1 ea inhalation DAILY allergies 10/11/22 12/06/22 62.5 mcg-vilant 25 mcg inhalat.powder buspirone 10 mg tablet 10 mg PO DAILY 12/06/22 12/06/22 Previous Rx's Medication Instructions Recorded ipratropium 0.5 mg-albuterol 3 mg 3 ml inhalation Q4HP PRN Shortness 03/24/19 (2.5 mg base)/3 mL nebulization Of Breath 10 days ##60 soln meloxicam 15 mg tablet 15 mg PO DAILY #30 tabs 12/06/22 doxycycline hyclate 100 mg capsule 100 mg PO BID 7 days #14 caps 12/16/22 Allergies Allergy/AdvReac Type Severity Reaction Status Date / Time doxycycline Allergy Intermediate Hives Verified 12/06/22 09:03 [facility] Disclaimer: The information contained in this section may have been updated after the patient was seen, as this information can be updated by other users. Medical History (Updated 12/16/22 @ 20:28 by Ellis Dangelo MD) Bilateral cataracts COPD (chronic obstructive pulmonary disease) COPD (chronic obstructive pulmonary disease) HLD (hyperlipidemia) Normal colonoscopy Rheumatoid arthritis Surgical History History of bilateral tubal ligation Family History Other Cancer Heart attack Hyperlipidemia Hypertension Stroke Social History Smoking Status: Current every day smoker tobacco type: cigarettes packs per day: 1 alcohol intake: never substance use type: denies use current occupational status: other Travel in the last 8 weeks: None household members: children housing: house caffeine: Yes ROS Obtained: Yes Systems reviewed as appropriate & no additional complaints except as documented [facility]
[2022-12-16 19:11] LABS: Basophils % 0.3 % (0.1-2.0); Eosinophils # 0.2 K/mm3 (0.0-0.4); Eosinophils % 1.3 % (0.1-12.0); Hematocrit 43.2 % (37.0-47.0); Hemoglobin 13.4 g/dL (12.2-16.2); Lymphocytes # 1.3 K/mm3 (0.7-4.5); Lymphocytes % 10.2 % (10-50); Mean Corpuscular HGB Conc 31.1 g/dL (31.8-35.4); Mean Corpuscular Hemoglobin 29.7 pg (27.0-31.2); Mean Corpuscular Volume 95.5 fl (81-99); Mean Platelet Volume 8.8 fl (7.4-10.4); Monocytes # 0.9 K/mm3 (0.1-1.0); Monocytes % 7.2 % (1.7-9.3); Neutrophils # 9.9 K/mm3 (1.8-7.8); Neutrophils % 81.1 % (37.0-80.0); Platelet Count 206 K/mm3 (142-424); Red Blood Count 4.53 M/mm3 (4.20-5.40); Red Cell Distribution Width 13.4 % (11.5-17.5); White Blood Count 12.2 K/mm3 (4.8-10.8)
[2022-12-16 19:12] LABS: Chloride 97 mmol/L (98-107); Potassium 4.3 mmoL/L (3.5-5.1); Sodium 138 mmol/L (136-145)
--- NOTE | 2022-12-16 19:14 | PC.NURSE ---
PT STATED SHE WAS FINE NEEDED NOTHING AT THIS TIME, FAMILY AT BS
[2022-12-16 19:15] LABS: Alanine Aminotransferase 19 U/L (12-78); Albumin Level 3.8 g/dl (3.5-5.0); Albumin/Globulin Ratio 1.2 (1.1-1.8); Alkaline Phosphatase 97 U/L (38-126); Aspartate Amino Transferase 27 U/L (14-36); Bilirubin,Total 0.5 mg/dl (0.2-1.3); Blood Urea Nitrogen 16 mg/dl (7-17); Creatinine Clearance Estimated 46 mL/min (50-200); Estimated Glomerular Filt Rate 156 ml/min (>60); GFR (African American) 189 ML/MIN (>60); Globulin 3.2 g/dL (1.3-3.2)
[2022-12-16 19:16] LABS: Anion Gap 5.3 mEq/L (5-15); Calcium 8.2 mg/dl (8.4-10.2); Glucose 122 mg/dl (74-100)
[2022-12-16 19:22] LABS: Carbon Dioxide 37 mmol/L (22.0-30.0)
--- NOTE | 2022-12-16 19:32 | PC.NURSE ---
ROUNDED ON PT NOTHING NEEDED AT THIS TIME, FAMILY AT BS
--- NOTE | 2022-12-16 20:15 | PC.NURSE ---
PT IS SLEEPING IN BED, FAMILY AT BS
[2022-12-16 20:30] LABS: Coronavirus 19, PCR Not Detected (NotDetected); Influenza A, PCR Not Detected (NotDetected); Influenza B, PCR Not Detected (NotDetected)
[2022-12-16 20:37] LABS: NT Pro Brain Natriuretic Pep. 270 pg/mL (0-125)
--- NOTE | 2022-12-16 21:10 | PC.NURSE ---
CHECKED ON PT NO COMPLAINTS AT THIS TIME WAITING TO BE DISCHARGED, SON AT BS
== END 2022-12-16 21:11 | disposition home or self-care (01) ==
PROVIDERS: Emergency Provider Emergency Medicine; PCP Nurse Practitioner Family
DX: J44.1 Chronic obstructive pulmonary disease with (acute) exacerbation (principal); J18.9 Pneumonia, unspecified organism; E78.5 Hyperlipidemia, unspecified; M06.9 Rheumatoid arthritis, unspecified; R00.0 Tachycardia, unspecified; F17.210 Nicotine dependence, cigarettes, uncomplicated
CPT/HCPCS: 71045; 80053; 83880; 85025; 87636; 93005; 96374; 96375; 99285; J0696

== ENCOUNTER → 2022-12-26 09:37 | Outpatient (CLI) | payer MEDICARE, MEDICAID, SELFPAY ==
--- NOTE | 2022-12-26 09:43 | XR_ITS ---
FINAL REPORT CLINICAL HISTORY: PNEUMONIA COMPARISON: 12/16/2022 FINDINGS: PA and lateral views of the chest are obtained. The cardiac and mediastinal silhouettes are within normal limits. There has been interval improvement in the previously seen left perihilar and bibasilar opacities. There continues to be small bilateral pleural effusions. There is no pneumothorax, or acute osseous abnormality. IMPRESSION: Improved opacities, likely improved pneumonia. Reviewed, Interpreted and Dictated by Mabel Navarro MD Transcribed by Arjun Bergman Authenticated and [facility]
== END ==
PROVIDERS: PCP Nurse Practitioner Family; Visit Provider Nurse Practitioner Family
DX: J18.9 Pneumonia, unspecified organism (principal)
CPT/HCPCS: 71046

== ENCOUNTER 2023-04-15 12:57 | Outpatient (CLI) | payer MEDICARE, MEDICAID, SELFPAY ==
[2023-04-15 13:30] VITALS: BP 124/60; PULSE 85; RESP 18; TEMP 36.9; O2SAT 91
[2023-04-15] MEDS: DENOSUMAB 60 MG/ML SYRINGE SQ (13:30)
== END 2023-04-15 13:49 | disposition home or self-care (01) ==
LOC: INF 12:58
PROVIDERS: PCP Nurse Practitioner Family; Visit Provider Nurse Practitioner Family
DX: M81.0 Age-related osteoporosis without current pathological fracture (principal)
CPT/HCPCS: 96372; J0897

== ENCOUNTER 2023-06-10 12:59 | Emergency (ER) | payer MEDICARE, MEDICAID, SELFPAY ==
[2023-06-10] VITALS (8 sets, daily range): BP systolic 115–167; BP diastolic 80–94; PULSE 64–96; RESP 18–22; TEMP 36.6–36.8; O2SAT 78–95; BMI 25.5
--- NOTE | 2023-06-10 13:11 | ECG_ITS ---
APPROVED REPORT Exam: Resting ECG HR:90 bpm ECG Measurements Heart Rate 90 AXES OR 136 P 88 QRSd 98 QRS 86 QT 332 T 83 QTc 380 Conclusion SINUS RHYTHM WITH SINUS ARRHYTHMIA MINIMAL VOLTAGE CRITERIA FOR LVH, CONSIDER NORMAL VARIANT [MEETS CRITERIA IN ONE OF: R(aVL), S(V1), R(V5), R(V5/V6)+S(V1)] BORDERLINE ECG UNCONFIRMED REPORT Electronically signed by : Henrik Hand MD 06/13/2023 20:42:38
--- NOTE | 2023-06-10 13:22 | PC.NURSE ---
Dr. Coley at BS for pt eval
--- NOTE | 2023-06-10 13:22 | PC.NURSE ---
DR PALOMINO AT BEDSIDE
--- NOTE | 2023-06-10 13:33 | XR_ITS ---
PROCEDURE INFORMATION: Exam: XR Chest Exam date and time: 06/10/2023 1:34 PM Age: 73 years old Clinical indication: Shortness of breath; Additional info: Recent pna, continued SOA TECHNIQUE: Imaging protocol: Radiologic exam of the chest. Views: 2 views. COMPARISON: CR XR CHEST 2V 12/26/2022 9:54 AM FINDINGS: Lungs: Lung [place] are hyperinflated with flattening of the hemidiaphragms consistent with COPD. Small indistinct right infrahilar nodular opacity projecting over the upper right heart border. Inconclusive for small infiltrate or subsegmental atelectasis. Remaining lung [place] are clear. Pleural spaces: Unremarkable. No pleural effusion. No pneumothorax. Heart/Mediastinum: Stable indistinct right paratracheal opacity believed vascular nature.. No cardiomegaly. Bones/joints: Unremarkable for age. IMPRESSION: COPD. Questionable small right middle lobe infiltrate for which continued follow-up advised.
--- NOTE | 2023-06-10 13:40 | PC.NURSE ---
PT TO XR
--- NOTE | 2023-06-10 13:42 | HMH.EDCP ---
Discharge Plan Disposition Patient Disposition: Home, Self-Care Prescriptions Prescriptions: New cefdinir 300 mg capsule 300 mg PO BID 7 Days Qty: 14 0RF No Action buspirone 10 mg tablet 10 mg PO DAILY meloxicam 15 mg tablet 15 mg PO DAILY Qty: 30 2RF albuterol sulfate [Ventolin HFA] 90 mcg/actuation HFA aerosol inhaler 2 puff INHALATION QIDP PRN (Reason: Shortness Of Breath) lovastatin 40 mg tablet 80 mg PO DAILY ipratropium-albuterol 3 ML solution for nebulization 3 ml inhalation Q4HP PRN (Reason: Shortness Of Breath) 10 Days Qty: 60 5RF rvynltdsrul-epjvfvqic-hsuibean 1 EACH blister with device 1 ea inhalation DAILY Referrals Follow up/Referrals: Mer Isaac APRN [Primary Care Provider] - See instructions Activity Restrictions/Add. Instructions Additional Instructions/Restrictions: Call your family doctor to establish care for this visit to the emergency department and schedule follow-up within 48 hours to ensure improvement. If you have any worsening of your condition or any other concerning signs or symptoms, return to the emergency department or your primary care doctor for further evaluation. Antibiotic twice daily for 7 days Clinical Impressions Clinical Impression: Pneumonia Qualifiers: Pneumonia type: due to unspecified organism Laterality: right Lung location: middle lobe of lung Qualified Code(s): J18.9 - Pneumonia, unspecified organism Discharge ED Provider: Filemon Coley HPI General Chief Complaint: Shortness of Breath/Dyspnea Stated Complaint: soa, poss dehydration Time Seen by Provider: 06/10/23 13:01 Mode of Arrival: Ambulatory Source of Information: Patient Limitations: No Limitations Description of Symptoms (Recalled from ER Triage Doc. by RN): pt to ed c/o shortness of breath. pt states a hx of copd. pt states she seen pcp on and was given abx and steroids with no relief. pt states she has been using her home nebulizer with no relief. pt reports to being on 2L NC @ baseline. History of Present Illness HPI narrative: 73-year-old female history of hypertension, hyperlipidemia, COPD not currently smoking, but vaporizing, recent diagnosis of COPD exacerbation presenting with shortness of breath. Patient states that she usually wears 2 L oxygen at home, wearing 3 L nasal cannula here. Was diagnosed with COPD exacerbation, given prednisone and Augmentin. Patient almost done with Augmentin, has 2 more days. Today's last day of prednisone. Patient states that her cough was initially bad, but is improving. She is still producing green sputum, but a lot less than she was up few days prior to this visit. Primary visit reason today is shortness of breath. Patient states that she is using extension tubing throughout her house at home. Related Data Home Medications Medication Instructions Recorded Confirmed albuterol sulfate 90 mcg/actuation 2 puff inhalation QIDP PRN 08/15/17 04/15/23 aerosol inhaler (Ventolin HFA) Shortness Of Breath lovastatin 40 mg tablet 80 mg PO DAILY Cholesterol 08/15/17 04/15/23 fluticasone fur. 100 mcg-umeclid 1 ea inhalation DAILY allergies 10/11/22 04/15/23 62.5 mcg-vilant 25 mcg inhalat.powder buspirone 10 mg tablet 10 mg PO DAILY 12/06/22 04/15/23 Previous Rx's Medication Instructions Recorded ipratropium 0.5 mg-albuterol 3 mg 3 ml inhalation Q4HP PRN Shortness 03/24/19 (2.5 mg base)/3 mL nebulization Of Breath 10 days ##60 soln meloxicam 15 mg tablet 15 mg PO DAILY #30 tabs 12/06/22 cefdinir 300 mg capsule 300 mg PO BID 7 days #14 caps 06/10/23 Allergies Allergy/AdvReac Type Severity Reaction Status Date / Time doxycycline Allergy Intermediate Hives Verified 04/15/23 13:48 [facility] Disclaimer: The information contained in this section may have been updated after the patient was seen, as this information can be updated by other users. Medical History Bilateral cataracts COPD (chronic obstructive pulmonary disease) COPD (chronic obstructive pulmonary disease) HLD (hyperlipidemia) Normal colonoscopy Rheumatoid arthritis Surgical History History of bilateral tubal ligation Family History Other Cancer Heart attack Hyperlipidemia Hypertension Stroke Social History (Updated 04/15/23 @ 13:45 by Darryn Ashraf RN) Smoking Status: Current every day smoker tobacco type: cigarettes packs per day: 1 alcohol intake: never substance use type: denies use current occupational status: other Travel in the last 8 weeks: None household members: children housing: house caffeine: Yes ROS Obtained: Yes All systems reviewed & no additional complaints except as documented Physical Exam General General appearance: alert Neck Neck exam: Present trachea midline Chest Chest inspection: Present normal inspection and symmetric chest wall rise Respiratory Respiratory exam: Present normal lung sounds bilaterally, wheezes (Diffuse, bilateral), accessory muscle use and prolonged expiratory phase; Absent respiratory distress or stridor Cardiovascular Cardiovascular exam: Present regular rate and normal rhythm Extremities Exam Extremities exam: Absent edema Neurological Exam Neurological exam: Present alert, oriented X3 and CN II-XII intact Skin Skin exam: Present warm and dry; Absent cyanosis, diaphoresis or pallor HEART Score HEART Score HEART Score assessment performed?: No Critical Care Critical Care Time Critical Care Time: No Medical Decision Making Medical Records Medical records reviewed: Yes I reviewed the patient's medical records. Braulio Inquiry Pt receiving controlled substance: No Braulio was queried for this patient: No Vital Signs Vital Signs: 06/10/23 13:12 06/10/23 13:24 06/10/23 13:30 Temperature 98.2 F Temperature Source Oral Pulse Rate 91 H Pulse Rate [Left Radial] 94 H Respiratory Rate 22 Blood Pressure 148/94 H Blood Pressure [Right Arm] 167/89 H Blood Pressure Mean Blood Pressure Mean [Right Arm] 115 02 Sat by Pulse Oximetry 78 L 93 L 93 L Oxygen Delivery Method Room Air Nasal Cannula Nasal Cannula Oxygen Flow Rate (LPM) 3 2 06/10/23 14:00 06/10/23 14:10 06/10/23 14:10 Temperature Temperature Source Pulse Rate 64 84 Pulse Rate [Left Radial] Respiratory Rate Blood Pressure 128/80 Blood Pressure [Right Arm] Blood Pressure Mean Blood Pressure Mean [Right Arm] 02 Sat by Pulse Oximetry 92 L 94 L Oxygen Delivery Method Nasal Cannula Nasal Cannula Oxygen Flow Rate (LPM) 2 3 06/10/23 14:10 06/10/23 14:31 06/10/23 15:00 Temperature Temperature Source Pulse Rate 84 95 H 96 H Pulse Rate [Left Radial] Respiratory Rate 20 Blood Pressure 115/81 152/84 H Blood Pressure [Right Arm] Blood Pressure Mean 106 Blood Pressure Mean [Right Arm] 02 Sat by Pulse Oximetry 95 93 L Oxygen Delivery Method Nasal Cannula Oxygen Flow Rate (LPM) 3 Lab Data Labs: Lab Results 06/10/23 13:55: WBC 15.9 H, RBC 5.07, Hgb 15.6, Hct 49.3 H, MCV 97.2, MCH 30.8, MCHC 31.7 L, RDW 12.8, Plt Count 270, MPV 8.3, Neut % (Auto) 86.1 H, Lymph % (Auto) 10.3, Porter % (Auto) 2.8, Eos % (Auto) 0.3, Baso % (Auto) 0.5, Neut # (Auto) 13.7 H, Lymph # (Auto) 1.6, Porter # (Auto) 0.4, Eos # (Auto) 0.1, Baso # (Auto) 0.1, Total Counted 100, Neutrophils % (Manual) 93 H, Lymphocytes % (Manual) 7 L, Platelet Estimate Normal, RBC Morphology Normal, Sodium 135 L, Potassium 4.4, Chloride 91 L, Carbon Dioxide 36 H, Anion Gap 12.4, BUN 16, Creatinine 0.50 L, Estimated Creat Clear 46, Estimated GFR 120, Est GFR ( Amer) 146, Glucose 124 H, Calcium 9.3, Total Bilirubin 0.4, AST 30, ALT 36, Alkaline Phosphatase 62, NT-Pro-B Natriuret Pep 49.8, Total Protein 6.7, Albumin 3.8, Globulin 2.9, Albumin/Globulin Ratio 1.3 06/10/23 13:55 06/10/23 13:55 Response Orders (Tests/Meds): ED MEDICATIONS Generic Name Dose Route Start Last Admin Trade Name Freq PRN Reason Stop Dose Admin Ceftriaxone Sodium 2 gm/ 100 mls @ 200 mls/hr 06/10/23 15:09 06/10/23 15:16 Sodium Chloride IV 06/10/23 15:38 200 mls/hr ONCE ONE Administration Discontinued Medications Generic Name Dose Route Start Last Admin Trade Name Freq PRN Reason Stop Dose Admin Albuterol/Ipratropium 6 ml 06/10/23 13:33 06/10/23 14:23 Ipratropium/Albuterol 3 Ml Neb IH 06/10/23 13:34 6 ml ONCE ONE Administration ORDERS Category Date Time Status CXR 2 view (NOT portable) [XR chest 2V] Stat Exams 06/10/23 13:33 Completed Brain Natriuretic Peptide Stat Lab 06/10/23 13:55 Completed CBC w/Auto Diff [Complete Blood Count Auto Diff] Stat Lab 06/10/23 13:55 Completed CMP [Comprehensive Metabolic Panel] Stat Lab 06/10/23 13:55 Completed ECG initial Besson Routine Y 06/10/23 13:11 Completed MDM Narrative Medical Decision Narrative: 73-year-old female history of hypertension, hyperlipidemia, COPD not currently smoking, but vaporizing, recent diagnosis of COPD exacerbation presenting with shortness of breath. Patient states that she usually wears 2 L oxygen at home, wearing 3 L nasal cannula here. Was diagnosed with COPD exacerbation, given prednisone and Augmentin. Patient almost done with Augmentin, has 2 more days. Today's last day of prednisone. Patient states that her cough was initially bad, but is improving. She is still producing green sputum, but a lot less than she was up few days prior to this visit. Primary visit reason today is shortness of breath. Patient states that she is using extension tubing throughout her house at home. She be noted that patient has COPD and recent exacerbation which does not appear to be at goal therapy, complicating care. History was obtained via conversation with patient and family. On arrival, patient hemodynamically stable, alert, oriented x4, appropriate, GCS 15, moving all extremities spontaneously, pupils equal and reactive to light. Full physical exam performed and significant for pleasant, well-appearing woman in no acute distress. Mild accessory muscle use with inspiratory effort. Prolonged expiratory phase and diffuse, bilateral wheezes. No focal breath sounds. Heart sounds normal. No lower extremity swelling. Differential includes COPD exacerbation, bronchitis, pneumonia, pneumothorax, CHF, CAD, PE, among others. Patient was given DuoNeb x 2 for symptomatic management and correction of underlying abnormalities. Workup independently interpreted and significant for leukocytosis 16,000. Nonactionable chemistry. Chest x-ray with right middle lobe patient. See radiology read for full review of final results. Independent interpretation of EKG shows sinus rhythm [address] or T wave changes concerning for acute ischemia. QRS, QT, [place] intervals within normal limits. On reevaluation, patient resting calmly bed feeling a lot better. She was given 2 g ceftriaxone at home prescription was switched to cefdinir for 7 days. Because patient at baseline without signs or symptoms of clinical decompensation, deemed appropriate for discharge. Results were relayed to patient and family who voiced understanding and were agreeable to outpatient management and follow up. At the time of discharge the patient was hemodynamically stable, tolerating PO, and mobilizing appropriately.
--- NOTE | 2023-06-10 13:46 | PC.NURSE ---
PT returned from RAD
--- NOTE | 2023-06-10 14:03 | PC.NURSE ---
RT at BS to administer breathing treatment
[2023-06-10 14:10] LABS: Basophils # 0.1 K/mm3 (0-0.2); Basophils % 0.5 % (0.1-2.0); Eosinophils # 0.1 K/mm3 (0.0-0.4); Eosinophils % 0.3 % (0.1-12.0); Hematocrit 49.3 % (37.0-47.0); Hemoglobin 15.6 g/dL (12.2-16.2); Lymphocytes # 1.6 K/mm3 (0.7-4.5); Lymphocytes % 10.3 % (10-50); Mean Corpuscular HGB Conc 31.7 g/dL (31.8-35.4); Mean Corpuscular Hemoglobin 30.8 pg (27.0-31.2); Mean Corpuscular Volume 97.2 fl (81-99); Mean Platelet Volume 8.3 fl (7.4-10.4); Monocytes # 0.4 K/mm3 (0.1-1.0); Monocytes % 2.8 % (1.7-9.3); Neutrophils # 13.7 K/mm3 (1.8-7.8); Neutrophils % 86.1 % (37.0-80.0); Platelet Count 270 K/mm3 (142-424); Red Blood Count 5.07 M/mm3 (4.20-5.40); Red Cell Distribution Width 12.8 % (11.5-17.5); White Blood Count 15.9 K/mm3 (4.8-10.8)
[2023-06-10 14:11] LABS: Chloride 91 mmol/L (98-107); Sodium 135 mmol/L (136-145)
[2023-06-10 14:12] LABS: Potassium 4.4 mmoL/L (3.5-5.1)
[2023-06-10 14:13] LABS: MANUAL DIFFERENTIAL MANUAL DIFFERENTIAL (MANUAL DIFF)
[2023-06-10 14:14] LABS: Alanine Aminotransferase 36 U/L (12-78); Albumin Level 3.8 g/dl (3.5-5.0); Albumin/Globulin Ratio 1.3 (1.1-1.8); Alkaline Phosphatase 62 U/L (38-126); Aspartate Amino Transferase 30 U/L (14-36); Bilirubin,Total 0.4 mg/dl (0.2-1.3); Blood Urea Nitrogen 16 mg/dl (7-17); Creatinine Clearance Estimated 46 mL/min (50-200); Estimated Glomerular Filt Rate 120 ml/min (>60); GFR (African American) 146 ML/MIN (>60); Globulin 2.9 g/dL (1.3-3.2); Total Protein,Serum 6.7 g/dl (6.3-8.2)
[2023-06-10 14:15] LABS: Calcium 9.3 mg/dl (8.4-10.2); Glucose 124 mg/dl (74-100)
[2023-06-10 14:21] LABS: Lymphocytes % 7 % (10-50); Neutrophils % 93 % (42-76); Total Cells Counted 100
[2023-06-10 14:22] LABS: Anion Gap 12.4 mEq/L (5-15); Carbon Dioxide 36 mmol/L (22.0-30.0); Platelet Estimate Normal; RBC Morphology Normal
[2023-06-10] MEDS: IPRATROPIUM/ALBUTEROL 3 ML NEB 6 ML IH (14:23)
[2023-06-10 14:24] LABS: NT Pro Brain Natriuretic Pep. 49.8 pg/mL (0-450)
--- NOTE | 2023-06-10 14:51 | PC.NURSE ---
Dr. Coley at BS to update pt/visitor on results and POC
[2023-06-10] MEDS: CEFTRIAXONE SODIUM 2 GM in 0.9 % SODIUM CHLORIDE 100 ML IV (15:16)
[2023-06-10 15:41] LABS: Coronavirus 19, PCR Not Detected (NotDetected); Influenza A, PCR Not Detected (NotDetected); Influenza B, PCR Not Detected (NotDetected)
== END 2023-06-10 16:06 | disposition home or self-care (01) ==
PROVIDERS: Emergency Provider Emergency Medicine; PCP Nurse Practitioner Family
DX: J18.9 Pneumonia, unspecified organism (principal); J44.9 Chronic obstructive pulmonary disease, unspecified; I10 Essential (primary) hypertension; E78.5 Hyperlipidemia, unspecified; M06.9 Rheumatoid arthritis, unspecified; F17.210 Nicotine dependence, cigarettes, uncomplicated
CPT/HCPCS: 71046; 80053; 83880; 85007; 85025; 87636; 93005; 96365; 99285; J0696

== ENCOUNTER 2023-10-15 12:45 | Outpatient (CLI) | payer MEDICARE, MEDICAID, SELFPAY ==
[2023-10-15 13:00] VITALS: BP 145/63; PULSE 77; RESP 18; TEMP 36.8; O2SAT 97
[2023-10-15] MEDS: DENOSUMAB 60 MG/ML SYRINGE SQ (13:00)
== END 2023-10-15 13:36 | disposition home or self-care (01) ==
LOC: INF 12:46
PROVIDERS: PCP Nurse Practitioner Family; Visit Provider Nurse Practitioner Family
DX: M81.0 Age-related osteoporosis without current pathological fracture (principal)
CPT/HCPCS: 96372; J0897

== ENCOUNTER 2023-10-22 09:22 | Outpatient (CLI) | payer MEDICARE, MEDICAID, SELFPAY ==
--- NOTE | 2023-10-22 09:30 | MM_ITS ---
PROCEDURE INFORMATION: Exam: MG Bilateral Screening 3D Mammography Exam date and time: 10/22/2023 9:19 AM Age: 73 years old Clinical indication: Screening mammogram TECHNIQUE: Imaging protocol: Bilateral Screening tomosynthesis and 2D mammography including computer-aided detection (CAD) when performed. COMPARISON: 1. MG MM DIG SCREENING MAMM BI W/CAD 09/19/2022 9:45 AM 2. MG MM DIG SCREENING MAMM BI W/CAD 06/22/2021 8:22 AM 3. MG SCBI MM Dig screening mamm BI w/CAD 07/25/2018 9:04 AM 4. MG SCBI MM Dig screening mamm BI w/CAD 07/23/2017 9:06 AM FINDINGS: MAMMOGRAPHY: Breast composition: There are scattered areas of fibroglandular density. Mass: None. Architectural distortion: No new or suspicious architectural distortion. Calcifications: No new or suspicious calcifications are present Asymmetric density: No new or suspicious asymmetric density is present Skin thickening: None. Axillary adenopathy: None. IMPRESSION: No mammographic evidence of malignancy. Recommend annual screening mammography unless otherwise clinically indicated. ASSESSMENT: BI-RADS category 1: Negative.
--- NOTE | 2023-10-22 09:32 | CT_ITS ---
FINAL REPORT TECHNIQUE: Thin section axial images were obtained from the lung apices to the upper abdomen by computed tomography. Reformatted images were obtained and reviewed. This study was performed with techniques to keep radiation doses al low as reasonably achievable (ALARA). Individualized dose reduction techniques using automated exposure control or adjustment of mA and/or kV according to the patient's size were employed. CLINICAL HISTORY: HX OF NICOTINE former smoker quite 5 months ago 1ppd x 40 years COMPARISON: 09/19/2022 FINDINGS: CHEST CT LOW DOSE CTDI vol (mGy): 2.90 DLP (mGy-cm): 96.38 There is no axillary adenopathy. There is no mediastinal or hilar mass or adenopathy. The heart is normal in size. Severe coronary artery calcifications are noted. There is no pericardial or pleural effusion. There is mild emphysema and mild pulmonary scarring. Lung window images demonstrate no suspicious infiltrate or nodule. There are bilateral calcified granulomas. Limited images of the upper abdomen are unremarkable. IMPRESSION: Lung-RADS category 1S. Recommend 12 month follow up low dose chest CT. Modifier S: Severe coronary artery calcifications. Reviewed, Interpreted and Dictated by Obey Howard III, MD Transcribed by Mindy Canseco Authenticated and [facility]
== END 2023-10-22 23:59 | disposition home or self-care (01) ==
LOC: RAD 09:23
PROVIDERS: PCP Nurse Practitioner Family; Visit Provider Nurse Practitioner Family
DX: Z12.31 Encounter for screening mammogram for malignant neoplasm of breast (principal); Z87.891 Personal history of nicotine dependence
CPT/HCPCS: 71271; 77063; 77067

== ENCOUNTER 2023-11-21 09:04 | Outpatient (CLI) | payer MEDICARE, MEDICAID, SELFPAY ==
--- NOTE | 2023-11-21 09:10 | XR_ITS ---
FINAL REPORT TECHNIQUE: Bone densitometry calculations of the lumbar spine and left hip were obtained. CLINICAL HISTORY: POST MENOPAUSAL COMPARISON: 09/19/2022 FINDINGS: Using L1-4, the bone mineral density of the spine is 1.010 g/cm2, corresponding to T-score of -0.3. Using the left hip, the bone mineral density of the femoral neck is 0.513 g/cm2, corresponding to a T-score of -3.0. NOTE: T-score: Standard deviation compared with peak bone mass of young adult mean. *Following the recommendations of the International Society of Bone Densitometry, classification of hip BMD is based on the lower of two T-scores; total hip or femoral neck. IMPRESSION: Osteoporosis: Lowest T-score is at or below -2.5. This patient's T-score meets the World Health Organization criteria for osteoporosis. The bone mineral density and T-score of the lumbar spine is likely falsely elevated secondary to sclerotic changes in the lumbar spine. Reviewed, Interpreted and Dictated by Obey Howard III, MD Transcribed by Venessa Norris Authenticated and [facility]
== END 2023-11-21 23:59 | disposition home or self-care (01) ==
LOC: RAD 09:05
PROVIDERS: PCP Nurse Practitioner Family; Visit Provider Nurse Practitioner Family
DX: Z78.0 Asymptomatic menopausal state (principal)
CPT/HCPCS: 77080

== ENCOUNTER 2024-02-13 09:16 | Day surgery (SDC) | payer MEDICARE, MEDICAID, SELFPAY ==
[2024-02-13 09:48] VITALS: BP 116/68; PULSE 78; RESP 16; TEMP 36.6; O2SAT 98
[2024-02-13 10:11] VITALS: BMI 25.4
--- NOTE | 2024-02-13 10:41 | EXP.ANES.CKL ---
[facility] Disclaimer: The information contained in this section may have been updated after the patient was seen, as this information can be updated by other users. Medical History Arthritis Incontinence COPD (chronic obstructive pulmonary disease) Rheumatoid arthritis Bilateral cataracts Normal colonoscopy HLD (hyperlipidemia) COPD (chronic obstructive pulmonary disease) Surgical History History of bilateral tubal ligation Family History Other Cancer Heart attack Hyperlipidemia Hypertension Stroke Social History Smoking Status: Current every day smoker tobacco type: cigarettes packs per day: 1 alcohol intake: never substance use type: denies use current occupational status: other Travel in the last 8 weeks: None household members: children housing: house caffeine: Yes [facility] Anesthesia Checklist Patient Identification Patient Identification: Arm Band Structural Data Admitted From: Home Planned Operative Procedure/s: Colonoscopy Consent for Planned Operative Procedure(s) Verified: Yes Verified Documents: Surgical Consent and History and Physical NPO Status Verified Time NPO: 00:00 Additional verifications Anesthesia Reactions: No Airway Assessment Mallampati Score:: Class II C-Spine Mobility Assessed: Yes TMJ Mobility Assessed: Yes Dentition: Good Dentition Neurological Assessment Level of Consciousness: Awake, Alert and Appropriate Anesthesia Plan Anesthesia Risk discussed: Yes Anesthesia Plan: Verified ASA Class: III Anesthesia Type: MAC
[2024-02-13 10:42] VITALS: O2SAT 98
--- NOTE | 2024-02-13 11:01 | HMH.SCOPE ---
Procedure: Date: 02/13/24 Patient Date of :: 1950 Procedure Performed:: Screening colonoscopy Indications:: Colon cancer screening Previous incomplete exam by Dr. Bridges per patient Performing Provider:: Magnolia England MD Referring Provider:: Mer Isaac APRN Sedation:: Propofol Procedure:: After placing the patient in the left lateral decubitus position, the colonoscopy was gently inserted into the rectum and under direct visualization advanced to the cecum which was identified by transillumination in the right lower quadrant, identification of the ileocecal valve, appendiceal orifice, and cecal strap. Color, texture, mucosa, and anatomy of the colon were carefully examined with the scope. Findings:: Anal canal: normal Rectum: normal Sigmoid colon: normal without polyps or inflammatory changes, loopy Descending colon: normal without polyps or inflammatory changes Splenic flexure: normal Transverse colon: normal without polyps or inflammatory changes Hepatic flexure: normal Ascending colon: normal without polyps or inflammatory changes Cecum: normal Terminal ileum: not visualized Impression: Somewhat tortuous sigmoid colon but otherwise normal colonoscopy exam Recommendations:: Follow up examination in about TEN years or so, sooner if clinically indicated. Complications:: None Estimated blood obtained (mL): 0 Colonoscopy Component Colonoscopy Component Was a colonoscopy performed during today's procedure?: Yes Recommended follow up colonoscopy of at least 10 years?: Yes
[2024-02-13 11:05] VITALS: BP 110/63; PULSE 75; RESP 16; TEMP 36.2; O2SAT 96
[2024-02-13 11:15] VITALS: BP 98/58; PULSE 77; RESP 16; O2SAT 97
[2024-02-13 11:25] VITALS: BP 107/67; PULSE 74; RESP 16; O2SAT 96
[2024-02-13 11:35] VITALS: BP 103/55; PULSE 72; RESP 16; O2SAT 97
== END 2024-02-13 11:36 | disposition home or self-care (01) ==
PROVIDERS: PCP Nurse Practitioner Family; Visit Provider Internal Medicine Gastroenterology
PROC: 0DJD8ZZ Inspection of Lower Intestinal Tract, Via Natural or Artificial Opening Endoscopic (ICD-10-PCS; CPT 45378; principal; 2024-02-13 10:30)
DX: Z12.11 Encounter for screening for malignant neoplasm of colon (principal); Z86.010 Personal history of colon polyps
CPT/HCPCS: G0121; J7120

== ENCOUNTER 2024-04-16 13:04 | Outpatient (CLI) | payer MEDICARE, MEDICAID, SELFPAY ==
[2024-04-16 13:17] VITALS: BP 140/65; PULSE 71; RESP 18; TEMP 36.9; O2SAT 98
[2024-04-16] MEDS: DENOSUMAB 60 MG/ML SYRINGE SUBCUT (13:17)
== END 2024-04-16 13:30 | disposition home or self-care (01) ==
LOC: INF 13:05
PROVIDERS: PCP Nurse Practitioner Family; Visit Provider Nurse Practitioner Family
DX: M81.0 Age-related osteoporosis without current pathological fracture (principal)
CPT/HCPCS: 96372; J0897

== ENCOUNTER 2024-10-14 13:02 | Outpatient (CLI) | payer MEDICARE, SELFPAY ==
[2024-10-14 13:15] VITALS: BP 129/64; PULSE 77; RESP 20; TEMP 37.1; O2SAT 98
[2024-10-14] MEDS: ZOLEDRONIC ACID/MANNITOL-WATER 5 MG/100 ML PGGYBK.BTL 400 MG IV (13:15)
[2024-10-14] MEDS: SODIUM CHLORIDE 0.9% 10ML FLUSH SYRINGE 10 ML IV (13:29)
[2024-10-14 13:35] VITALS: BP 125/65; PULSE 72; RESP 20; O2SAT 98
== END 2024-10-14 13:35 | disposition home or self-care (01) ==
LOC: INF 13:03
PROVIDERS: PCP Nurse Practitioner Family; Visit Provider Nurse Practitioner Family
DX: M81.0 Age-related osteoporosis without current pathological fracture (principal)
CPT/HCPCS: 96374; J3489

== ENCOUNTER 2024-10-23 12:50 | Outpatient (CLI) | payer MEDICARE, MEDICAID, SELFPAY ==
--- NOTE | 2024-10-23 12:52 | CT_ITS ---
FINAL REPORT TECHNIQUE: Thin section axial images were obtained through the lungs using a low-dose technique per lung cancer screening protocol. Reconstruction images were obtained using the axial data. Exam was performed using dose reduction technique. This study was performed with techniques to keep radiation doses as low as reasonably achievable (ALARA). Individualized dose reduction techniques using automated exposure control or adjustment of mA and/or kV according to the patient's size were employed. CLINICAL HISTORY: SCREENING current smoker 1ppd x64 years COMPARISON: 10/22/2023 FINDINGS: CTDLvol: 2.90 DLP: One 1.86 Current smoker 64 pack year history Lungs: No acute pulmonary abnormality. No suspicious nodules. There is evidence of prior granulomatous disease. Changes of emphysema are noted. Lymph nodes: No thoracic lymphadenopathy. Mediastinum: Heart size is normal. Prominent coronary artery calcifications are present. Pleura/pericardium: No pleural or pericardial effusion. Other: No acute abnormality in the upper abdomen. IMPRESSION: No suspicious pulmonary nodule or mass. Lung RADS: 1S, the S designation for prominent coronary artery calcifications. Recommendation: 12-month follow-up LDCT. Reviewed, Interpreted and Dictated by Mabel Navarro MD Transcribed by Venessa Norris Authenticated and [facility]
--- NOTE | 2024-10-23 12:53 | MM_ITS ---
PROCEDURE INFORMATION: Exam: MG Bilateral Screening 3D Mammography Exam date and time: 10/23/2024 12:58 PM Age: 74 years old Clinical indication: Screening examination TECHNIQUE: Imaging protocol: Bilateral Screening tomosynthesis and 2D mammography including computer-aided detection (CAD) when performed. COMPARISON: 1. MG MM DIG SCREENING MAMM BI W/CAD 10/22/2023 9:19 AM 2. MG MM DIG SCREENING MAMM BI W/CAD 09/19/2022 9:45 AM FINDINGS: MAMMOGRAPHY: Breast composition: There are scattered areas of fibroglandular density. Mass: None. Architectural distortion: None. Calcifications: No suspicious calcifications. Asymmetric density: None. Skin thickening: None. Axillary adenopathy: None. IMPRESSION: No mammographic evidence of malignancy. Annual screening is recommended unless otherwise clinically indicated. ASSESSMENT: BI-RADS 1, Negative.
== END 2024-10-23 23:59 | disposition home or self-care (01) ==
LOC: RAD 12:51
PROVIDERS: PCP Nurse Practitioner Family; Visit Provider Nurse Practitioner Family
DX: Z12.31 Encounter for screening mammogram for malignant neoplasm of breast (principal); I25.10 Atherosclerotic heart disease of native coronary artery without angina pectoris; R92.323 Mammographic fibroglandular density, bilateral breasts; Z87.891 Personal history of nicotine dependence
CPT/HCPCS: 71271; 77063; 77067

== ENCOUNTER 2025-03-04 15:56 | Outpatient (CLI) | payer MEDICARE, MEDICAID, SELFPAY | END 2025-03-04 23:59 | disposition home or self-care (01) | LOC: LAB 15:56 | PROVIDERS: PCP Nurse Practitioner Family; Visit Provider Nurse Practitioner Family | DX: R30.0 Dysuria (principal) | CPT/HCPCS: 87086; 87088 ==

== ENCOUNTER 2025-03-12 10:55 | Outpatient (CLI) | payer MEDICARE, MEDICAID, SELFPAY ==
--- OUTSIDE RECORDS SUMMARY | 2025-03-04 11:00 | XMS_ITS ---
Author Organization [facility] D BR[facility] Address [address] [place] [address] Care Team Providers Care Human Resources Technician Name Role Phone Mer Isaac Primary Care Provider MER ISAAC Unavailable Unavailable Allergies No Known Allergies Results Component Value Reference Range Notes Urinalysis Reviewed date:03/04/2025 05:04:02 PM Interpretation: Performing Lab: Notes/Report: Color/Clarity yellow Leuk large Nitrite positive Urobili 1.0 Protein trace pH 6.5 Blood neg Sp. Gr. 1.015 Ketone neg Bili neg Glucose neg M-Urine Culture Reviewed date:03/08/2025 08:03:32 AM Interpretation: Performing Lab: Notes/Report: CUU ORGANISM 1: Shigella boydii RX NEUMANN: R- Resistant S- Susceptible I- Intermediate * Not on [facility] CUU Kyle Count >100,000 RX NEUMANN: R- Resistant S- Susceptible I- Intermediate * [facility] RX NEUMANN: R- Resistant S- Susceptible I- Intermediate * Not on [facility] CUU RX NEUMANN: R- Resistant S- Susceptible I- Intermediate * Not on [facility] CUU Shigella boydii: REACTION RX NEUMANN: R- Resistant S- Susceptible I- Intermediate * Not on [facility] CUU Ampicillin >16 R RX NEUMANN: R- Resistant S- Susceptible I- Intermediate * Not on [facility] CUU Ceftriaxone <=1 S RX NEUMANN: R- Resistant S- Susceptible I- Intermediate * [facility] C[facility] 2 R RX NEUMANN: R- Resistant S- Susceptible I- Intermediate * Not on [facility] Levofloxacin 1 I RX NEUMANN: R- Resistant S- Susceptible I- Intermediate * Not on [facility] Tetracycline <=2 S RX NEUMANN: R- Resistant S- Susceptible I- Intermediate * [facility] Trimethoprim/Sulfame thoxa zole <=0.5/9.5 S RX NEUMANN: R- Resistant S- Susceptible I- Intermediate * Not on [facility] CUU RX NEUMANN: R- Resistant S- Susceptible I- Intermediate * Not on [facility] REASON FOR VISIT had a virus on Saturday-diarrhea, vomiting and headache, loss of energy, possible uti-dysuria, pain/pressure, urinary frequency, needs refills on Ondansetron and Buspirone Medications Medication SIG (Take, Route, Frequency, Duration) Notes Start Date End Date Status Trelegy Ellipta 200-62.5-25 MCG/ACT INHALE 1 PUFF ONCE DAILY; Duration: 30 Active Reclast 5 MG/100ML as directed Intravenous yearly 10/09/2024 Active Albuterol Sulfate HFA 108 (90 Base) MCG/ACT 1 puff as needed Inhalation every 6 hours as needed; Duration: 30 days Active Lovastatin 40 MG 2 tab(s) orally once a day; Duration: 90 days 1 tab once a day Active Ipratropium-Albuterol 0.5-2.5 (3) MG/3ML 3 mL by nebulizer 4 times a day as needed for COPD symptoms; Duration: 30 days 06/11/2023 Active OXYGEN 2 LITERS DIRECTED DAILY 04/30/2019 Active Vitamin B12 1000 MCG 1 tablet Orally Once a day Active Magnesium 125 MG as directed Orally Active busPIRone HCl 10 MG 1 tab(s) orally 2 times a day; Duration: 90 days 09/06/2022 Active Vitamin D 1000MG 2 tab ORALLY once a day; Duration: 30 days 06/23/2021 Active Omeprazole 20 MG 1 cap(s) orally once a day; Duration: 90 days prn 03/28/2020 Not-Taking Gemtesa 75 MG Take 1 tablet by mouth once daily; Duration: 30 Active Meloxicam 15 MG TAKE 1 TABLET BY MOUTH ONCE DAILY NEEDED FOR JOINT PAIN; Duration: 90 Active Ondansetron HCl 4 MG 1 tablet Orally every 8 hours as needed for nausea/vomiting; Duration: 4 days 10/08/2024 Active Nitrofurantoin Monohyd Macro 100 MG 1 capsule with food Orally every 12 hrs; Duration: 5 days 03/04/2025 Active Social History Tobacco Use: Social History Observation Description Date Details (start date - stop date) Former Smoker NA - NA Tobacco Control (Standard) Question Answer Notes Tobacco use: Former smoker How long has it been since you last smoked? 6-12 months Additional Findings: Tobacco user e-cigarette Section Notes: vapes Vital Signs Temperature 97.6 degrees Fahrenheit 03/04/20 Heart Rate 96 /min 03/04/2025 Blood pressure systolic 140 mm Hg 03/04/20 Blood pressure diastolic 52 mm Hg 025 Height 60.5 in 03/04/2025 Weight 138.2 lbs 03/04/2025 BMI 26.54 kg/m2 03/04/2025 Encounters Encounter Location Date Provider Diagnosis [facility] BR[facility]GER [address] [facility] [address] [place] [address] 03/04/2025 Mer Isaac Dysuria R30.0 ; Acute UTI N39.0 ; Anxiety F41.9 and Nausea R11.0 Assessments Encounter Date Diagnosis (ICD Code) Assessment Notes Treatment Notes Treatment Clinical Notes Section Notes 03/04/2025 Dysuria (ICD-10 - R30.0) 03/04/2025 Acute UTI (ICD-10 - N39.0) Discussed suspected UTI based on symptoms/UA results and need for treatment with antibiotics as well as good water intake. Discussed return precautions including fever, vomiting, intractable pain, etc. 03/04/2025 Anxiety (ICD-10 - F41.9) 03/04/2025 Nausea (ICD-10 - R11.0) Plan Of Treatment Medication Medication Name Sig Start Date Stop Date Notes busPIRone HCl 10 MG 1 tab(s) orally 2 ti mes a day; Duration: 90 days 09/06/2022 Ondansetron HCl 4 MG 1 tablet Orally laura ry 8 hours as needed for nausea/vomiting; Duration: 4 days 10/08/2024 Nitrofurantoin Monohyd Macro 100 MG 1 capsule with food Orally every 12 hrs; Duration: 5 days 03/04/2025 Next Appt Details Follow Up: prn, Reason: Progress Notes * Mile PLASCENCIADOB: [birth year] (74 yo F)Acc No.[id number]:03/04/2025 Progress Notes Patient: Mile CROWELL Provider: FELI Vizcarra :1950 A ge:74 Y S ex:Female Date:03/04/2025 Address:[address] [facility], [place], [id number] Subjective: * Chief Complaints: * 1 . had a virus on Saturday-diarrhea, vomiting and headache, loss of energy. 2. Possible uti-dysuria, pain/pressure, urinary frequency. 3. needs refills on Ondansetron and Buspirone. * HPI: U rology: Presents today with 2 days of UTI symptoms. No fevers but significant dysuria and frequency. This immediately followed about 3 days of vomiting, diarrhea, abdominal cramping which seems resolved now. 74 year old female presents with c/o frequent urination. c/o burning sensation. Denies : flank pain. D enies : suprapubic pain. D enies : incontinence. D enies : hematuria. D enies : fever. * ROS: C ONSTITUTIONAL: no L oss of appetite. n o F ever. D ERMATOLOGY: no R alexa. G ASTROENTEROLOGY: See HPI Y es. U ROLOGY: See HPI Y es. * Medical History: C OPD, Hyperlipidemia, osteoporosis. 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 * Social History: R ecreational drug use: no. Exercise: no. Home smoke detector use: yes. Caffeine: yes, frequency: coffee daily and 1 coke occasionally and tea. Living Will: No. Alcohol: no. Sexually active: no. Travel outside [place]: no. Occupation: unemployed. Tobacco Control (Standard) T obacco use: F ormer smoker, H ow long has it been since you last smoked? 6 -12 months, A dditional Findings: Tobacco user e -cigarette. vapes. * Medications: T aking Magnesium 125 MG Capsule as directed Orally , Taking Vitamin B12 1000 MCG Tablet Extended Release 1 tablet Orally Once a day , Taking OXYGEN 2 LITERS NASAL CANNULA DIRECTED DAILY , Taking Vitamin D 1000MG 2 tab ORALLY once a day , Taking Ipratropium-Albuterol 0.5-2.5 (3) MG/3ML Solution 3 mL by nebulizer 4 times a day as needed for COPD symptoms , Taking Lovastatin 40 MG Tablet 2 tab(s) orally once a day , Notes to Pharmacist: 1 tab once a day, Taking Albuterol Sulfate HFA 108 (90 Base) MCG/ACT Aerosol Solution 1 puff as needed Inhalation every 6 hours as needed , Taking Ondansetron HCl 4 MG Tablet 1 tablet Orally every 8 hours as needed for nausea/vomiting , Taking Reclast 5 MG/100ML Solution as directed Intravenous , Notes to Pharmacist: yearly, Taking Trelegy Ellipta 200-62.5-25 MCG/ACT Aerosol Powder Breath Activated INHALE 1 PUFF ONCE DAILY , Taking Meloxicam 15 MG Tablet TAKE 1 TABLET BY MOUTH ONCE DAILY NEEDED FOR JOINT PAIN , Taking Gemtesa 75 MG Tablet Take 1 tablet by mouth once daily , Taking busPIRone HCl 10 MG Tablet 1 tab(s) orally 2 times a day , Not-Taking Omeprazole 20 MG Capsule Delayed Release 1 cap(s) orally once a day , Notes to Pharmacist: prn, Medication List reviewed and reconciled with the patient * Allergies: N .K.D.A. Objective: * Vitals: N urse: jl, Pain: 7, Temp: 97.6, RR: 20, HR: 96, BP: 140/52, Ht: 60.5, Wt: 138.2, BMI:26.54. * Examination: G eneral Examination: General P leasant and Cooperative, NAD on RA,. Oral cavity: M oist membranes. Heart: R egular Rate and Rhythm,. Lungs: c lear to auscultation,. Abdomen: s oft, NT/ND, BS present. Psych N ormal Mood/Affect. Assessment: * Assessment: 1. A cute UTI - N39.0 (Primary) 2 . D ysuria - R30.0 3 .?Anxiety - F41.9 4 . N ausea - R11.0 Plan: * Treatment: 2. D ysuria L AB: M-Urine Culture (Collection Date & Time - 03/04/2025 03:30 PM) ?LAB: Urinalysis (Collection Date & Time - 03/04/2025)* Value Reference Range C olor/Clarity yellow * L euk large * N itrite positive * U robili 1.0 * P rotein trace * p H 6.5 * B lood neg * S p. Gr. 1.015 * K etone neg * B padma neg * G lucose neg * Amita Smith 03/04/2025 03: 25:22 PM EDT > 3.?Anxiety? Refill busPIRone HCl Tablet, 10 MG, 1 tab(s), orally, 2 times a day, 90 days, 180 Tablet, Refills 1.??4.?Nausea? Refill Ondansetron HCl Tablet, 4 MG, 1 tablet, Orally, every 8 hours as needed for nausea/vomiting,4 days, 12, Refills 1.?? * Procedure Codes: 8 1002 URINALYSIS, Modifiers: QW * Follow Up: p rn * * Sign off status: Completed true * Provider: FELI Vizcarra Date: 0 03/04/2025 Generated for Rodrigo duke/[place]/eTransmitting on: 1 11:00 AM EDT History and Physical Notes * HPI (History of Present Illness) Category Sub-Category Detail Notes Category Not es Urology frequent urination burning sensation flank pain suprapubic pain incontinence hematuria fever Examination Category Sub-Category Detail Notes Category Not es General Examination Heart: Regular Rate and Rhyt hm, Lungs: clear to auscultatio n, Abdomen: soft, NT/ND, BS pres ent Oral cavity: Moist membranes General Pleasant and Coopera tive, NAD on RA, Psych Normal Mood/Affect
--- OUTSIDE RECORDS SUMMARY | 2025-03-10 14:13 | XMS_ITS ---
Author Organization [facility] Address [address] [facility] [address] [place] [address] Care Team Providers Care Aoc Airspace Control Officer Name Role Phone Mer Isaac Primary Care Provider MER ISAAC Unavailable Unavailable REASON FOR VISIT Weakness, concern for sepsis Encounters Encounter Location Date Provider Diagnosis [facility] [address] [facility] [address] [place], [place] [address] 03/10/2025 Mer Isaac Acute UTI N39.0 Assessments Encounter Date Diagnosis (ICD Code) Assessment Notes Treatment Notes Treatment Clinical Notes Section Notes 03/10/2025 Acute UTI (ICD-10 - N39.0) Plan Of Treatment Pending Test Test Name Order Date M-Complete Blood Count Auto Diff 025 M-Erythrocyte Sedimentation Rate 025 M-Urinalysis and Microscopic 03/10/2025 M-Comprehensive Metabolic Panel 03/10/20 25 G-T-Hfytlkao Protein 03/10/2025 M-Urine Culture 03/10/2025 Progress Notes * Mile PLASCENCIADOB: [birth year] (74 yo F)Acc No.[id number]:03/10/2025 Patient: Mile CROWELL :1950 A ge:74 Y S ex:Female Address:[address] [place] [address] Subjective: * Chief Complaints: * W eakness, concern for sepsis * Medical History: * Surgical History: * Hospitalization/Major Diagno stic Procedure: * Medications: Objective: * Vitals: * Physical Examination: Assessment: * Assessment: 1. Jesse barnes UTI - N39.0 (Primary) Plan: * Treatment: * Procedure Codes: * true * Date: Generated for Rodrigo duke/[place]/eTransmitting on: 11:00 AM EDT
--- OUTSIDE RECORDS SUMMARY | 2025-03-12 11:01 | XMS_ITS | Patient Health Record ---
Author Organization [facility] Address [address] [place] [address] Care Team Providers Care Mold Sheet Cleaner Name Role Phone Deep Isaac Primary Care Provider [phone] DEEP ISAAC Unavailable Unavailable Henrik Hand Unavailable [phone] Migration, Provider Unavailable Unavailable Allergies No Known Allergies Results [...] S- Susceptible I- Intermediate * Not on [facility] Waite Count >100,000 RX NEUMANN: R- Resistant S- Susceptible I- Intermediate * Not on [facility] RX NEUMANN: R- Resistant S- Susceptible I- Intermediate * [facility] on [facility] RX NEUMANN: R- Resistant S- Susceptible I- Intermediate * Not on [facility] Shigella boydii: REACTION RX NEUMANN: R- Resistant S- Susceptible I- Intermediate * Not on [facility] Ampicillin >16 R RX NEUMANN: R- Resistant S- Susceptible I- Intermediate * Not on [facility] Ceftriaxone <=1 S RX NEUMANN: R- Resistant S- Susceptible I- Intermediate * Not on [facility] Ciprofloxacin 2 R RX NEUMANN: R- Resistant S- Susceptible I- Intermediate * [facility] NEUMANN: R- Resistant S- Susceptible I- Intermediate * [facility] Tetr[facility] <=2 S RX NEMUANN: R- Resistant S- Susceptible I- Intermediate * [facility] Trimethoprim/Sulfame th oxazole <=0.5/9.5 S RX NEUMANN: R- Resistant S- Susceptible I- Intermediate * Not on [facility] RX NEUMANN: R- Resistant S- Susceptible I- Intermediate * Not on [facility] Mammogram : Bilateral Reviewed date:11/04/2024 10:15:19 AM Interpretation: Performing Lab: Notes/Report: Urinalysis Reviewed date:06/22/2024 08:45:47 PM Interpretation: Performing Lab: Notes/Report: Color/Clarity vernon cloudy Leuk small Nitrite pos Urobili 1.0 Protein 30mg/dL pH 7.0 Blood neg Sp. Gr. >=1.030 Ketone neg Bili neg Glucose neg VITAMIN D,25-OH,TOTAL,IA (17 306) Reviewed date:09/16/2024 01:43:53 PM Interpretation: Performing Lab:[facility], Children's [place]ip[place] Ace Do Notes/Report: NON-FASTING; NON-FASTING; NON-FASTING; NON-FASTING; NON-FAST VITAMIN D,25-OH,TOTAL,IA 56 30-100 ng/mL Vitamin D Status 25-OH Vitamin D: Deficiency: <20 ng/mL Insufficiency: 20 - 29 ng/mL Optimal: > or = 30 ng/mL For 25-OH Vitamin D testing on patients on D2-supplementation and patients for whom quantitation of D2 and D3 fractions is required, the QuestAssureD(TM) 25-OH VIT D, (D2,D3), LC/MS/MS is recommended: order code 42072 (patients >2yrs). See Note 1 Note 1 For additional information, please refer to http://education.payasUgym.[employer]/faq/FA Q199 (This link is being provided for informational/ educational purposes only.) VITAMIN B12 (927) Reviewed date:09/16/2024 01:43:53 PM Interpretation: Performing Lab:SORIN, payasUgym-[address], [place] ControlsTabmMY[address] Ace Do Notes/Report: NON-FASTING; NON-FASTING; NON-FASTING; NON-FASTING; NON-FAST VITAMIN B12 >2000 200-1100 pg/mL CBC (INCLUDES DIFF/PLT) (639 9) Reviewed date:09/16/2024 01:43:53 PM Interpretation: Performing Lab:SORIN, payasUgym-DeYapa [id number], [place] [id number] Ace Do Notes/Report: NON-FASTING; NON-FASTING; NON-FASTING; NON-FASTING; NON-FAST WHITE BLOOD CELL COUNT 8.0 3.8-10.8 Thousand/uL RED BLOOD CELL COUNT 4.55 3.80-5.10 Million/uL HEMOGLOBIN 14.0 11.7-15.5 g/dL HEMATOCRIT 40.6 35.0-45.0 % MCV 89.2 80.0-100.0 fL MCH 30.8 27.0-33.0 pg MCHC 34.5 32.0-36.0 g/dL For adults, a slight decrease in the calculated MCHC value (in the range of 30 to 32 g/dL) is most likely not clinically significant; however, it should be interpreted with caution in correlation with other red cell parameters and the patient's clinical condition. RDW 12.2 11.0-15.0 % PLATELET COUNT 254 140-400 Thousand/uL MPV 10.8 7.5-12.5 fL ABSOLUTE NEUTROPHILS 5656 2968-6122 cells/uL ABSOLUTE LYMPHOCYTES 4047 071-5560 cells/uL ABSOLUTE MONOCYTES 448 200-950 cells/uL ABSOLUTE EOSINOPHILS 72 15-500 cells/uL ABSOLUTE BASOPHILS 40 0-200 cells/uL NEUTROPHILS 70.7 LYMPHOCYTES 22.3 MONOCYTES 5.6 EOSINOPHILS 0.9 BASOPHILS 0.5 COMPREHENSIVE METABOLIC PANE L (81977) Reviewed date:09/16/2024 01:43:52 PM Interpretation: Performing Lab:SORIN, payasUgym-DeYapa [address], [place] FvmaHC[address] Ace Do Notes/Report: NON-FASTING; NON-FASTING; NON-FASTING; NON-FASTING; NON-FAST GLUCOSE 89 65-99 mg/dL Fasting reference interval UREA NITROGEN (BUN) 14 7-25 mg/dL CREATININE 0.71 0.60-1.00 mg/dL EGFR 88 > OR = 60 mL/min/1.73m2 BUN/CREATININE RATIO SEE NOTE: 6-22 (calc) Not Reported: BUN and Creatinine are within reference range. SODIUM 141 135-146 mmol/L POTASSIUM 4.2 3.5-5.3 mmol/L CHLORIDE 102 98-110 mmol/L CARBON DIOXIDE 30 20-32 mmol/L CALCIUM 9.8 8.6-10.4 mg/dL PROTEIN, TOTAL 6.9 6.1-8.1 g/dL ALBUMIN 4.4 3.6-5.1 g/dL GLOBULIN 2.5 1.9-3.7 g/dL (calc) ALBUMIN/GLOBULIN RATIO 1.8 1.0-2.5 (calc) BILIRUBIN, TOTAL 0.4 0.2-1.2 mg/dL ALKALINE PHOSPHATASE 86 37-153 U/L AST 14 10-35 U/L ALT 11 6-29 U/L LIPID PANEL, STANDARD (7600) Reviewed date:09/16/2024 01:43:52 PM Interpretation: Performing Lab:CB, [facility], Children's MinnesotaGvqnKH[address] Ace Do Notes/Report: NON-FASTING; NON-FASTING; NON-FASTING; NON-FASTING; NON-FAST CHOLESTEROL, TOTAL 258 <200 mg/dL HDL CHOLESTEROL 66 > OR = 50 mg/dL TRIGLYCERIDES 199 <150 mg/dL LDL-CHOLESTEROL 156 Reference range: <100 Desirable range <100 mg/dL for primary prevention; <70 mg/dL for patients with CHD or diabetic patients with > or = 2 CHD risk factors. LDL-C is now calculated using the Suleiman-Teri calculation, which is a validated novel method providing better accuracy than the Friedewald equation in the estimation of LDL-C. Suleiman GARY et al. ANIL. 2013;310(19): 0245-4848 (http://education.[employer]/faq/F AQ164) CHOL/HDLC RATIO 3.9 <5.0 (calc) NON HDL CHOLESTEROL 192 <130 mg/dL (calc) For patients with diabetes plus 1 major ASCVD risk factor, treating to a non-HDL-C goal of <100 mg/dL (LDL-C of <70 mg/dL) is considered a therapeutic option. COMPREHENSIVE METABOLIC [facility] (26061) Reviewed date:10/09/2024 10:29:07 AM Interpretation: Performing Lab:SORIN Intercom [id number] [facility], Children's MinnesotaRsqrZL[address] Ace Do Notes/Report: NON-FASTING; NON-FASTING; NON-FASTING; NON-FASTING GLUCOSE 104 65-99 mg/dL Fasting reference interval For someone without known diabetes, a glucose value between 100 and 125 mg/dL is consistent with prediabetes and should be confirmed with a follow-up test. UREA NITROGEN (BUN) 9 7-25 mg/dL CREATININE 0.71 0.60-1.00 mg/dL EGFR 88 > OR = 60 mL/min/1.73m2 BUN/CREATININE RATIO SEE NOTE: 6-22 (calc) Not Reported: BUN and Creatinine are within reference range. SODIUM 142 135-146 mmol/L POTASSIUM 4.0 3.5-5.3 mmol/L CHLORIDE 102 98-110 mmol/L CARBON DIOXIDE 29 20-32 mmol/L CALCIUM 9.6 8.6-10.4 mg/dL PROTEIN, TOTAL 6.6 6.1-8.1 g/dL ALBUMIN 4.3 3.6-5.1 g/dL GLOBULIN 2.3 1.9-3.7 g/dL (calc) ALBUMIN/GLOBULIN RATIO 1.9 1.0-2.5 (calc) BILIRUBIN, TOTAL 0.4 0.2-1.2 mg/dL ALKALINE PHOSPHATASE 72 37-153 U/L AST 14 10-35 U/L ALT 7 6-29 U/L CBC (INCLUDES DIFF/PLT) (639 9) Reviewed date:10/09/2024 10:29:07 AM Interpretation: Performing Lab:SORIN payasUgym-DeYapa [id number] [facility], Children's [id number] Ace Do Notes/Report: NON-FASTING; NON-FASTING; NON-FASTING; NON-FASTING WHITE BLOOD CELL COUNT 6.6 3.8-10.8 Thousand/uL RED BLOOD CELL COUNT 4.36 3.80-5.10 Million/uL HEMOGLOBIN 13.4 11.7-15.5 g/dL HEMATOCRIT 41.1 35.0-45.0 % MCV 94.3 80.0-100.0 fL MCH 30.7 27.0-33.0 pg MCHC 32.6 32.0-36.0 g/dL For adults, a slight decrease in the calculated MCHC value (in the range of 30 to 32 g/dL) is most likely not clinically significant; however, it should be interpreted with caution in correlation with other red cell parameters and the patient's clinical condition. RDW 12.0 11.0-15.0 % PLATELET COUNT 224 140-400 Thousand/uL MPV 10.3 7.5-12.5 fL ABSOLUTE NEUTROPHILS 4640 5875-7932 cells/uL ABSOLUTE LYMPHOCYTES 9462 062-4245 cells/uL ABSOLUTE MONOCYTES 350 200-950 cells/uL ABSOLUTE EOSINOPHILS 79 15-500 cells/uL ABSOLUTE BASOPHILS 53 0-200 cells/uL NEUTROPHILS 70.3 LYMPHOCYTES 22.4 MONOCYTES 5.3 EOSINOPHILS 1.2 BASOPHILS 0.8 LIPASE (606) Reviewed date:10/09/2024 10:29:07 AM Interpretation: Performing Lab:SORIN payasUgym-DeYapa [id number], RF ControlsVtcrXQ[address] Ace Do Notes/Report: NON-FASTING; NON-FASTING; NON-FASTING; NON-FASTING LIPASE 13 7-60 U/L AMYLASE (243) Reviewed date:10/09/2024 10:29:07 AM Interpretation: Performing Lab:SORIN payasUgym-[place] Objectse[address], [place] ControlsQygrFG[address] Ace Do Notes/Report: NON-FASTING; NON-FASTING; NON-FASTING; NON-FASTING AMYLASE 29 21-101 U/L CULTURE, URINE, ROUTINE (395 ) Reviewed date:06/29/2024 02:45:42 PM Interpretation: Performing Lab:SORIN [address]Ware[address], [place] [id number] Ace Do Notes/Report: NON-FASTING CULTURE, URINE, ROUTINE SEE NOTE CULTURE, URINE, ROUTINE Micro Number: [id number] Test Status: Final Specimen Source: Urine Specimen Quality: Adequate Result: Greater than 100,000 CFU/mL of Escherichia coli COMMENT: Additional non-predominating organism(s) isolated. These organisms, commonly found on external and internal genitalia, are considered colonizers. No further testing performed. E.coli INT MAXIMILIANO AMOX/CLAVULANATE S 8 AMP/SULBACTAM I 16 CEFAZOLIN NR <=4 2 CEFEPIME S <=0.12 CEFTAZIDIME S <=1 CEFTRIAXONE S <=0.25 CIPROFLOXACIN R 1 GENTAMICIN S <=1 IMIPENEM S <=0.25 LEVOFLOXACIN I 1 MEROPENEM S <=0.25 NITROFURANTOIN S <=16 PIP/TAZOBACTAM S <=4 TRIMETHOPRIM/SULFA S <=20 S = Susceptible I = Intermediate R = Resistant NS = Not susceptible SDD = Susceptible Dose Dependent * = Not Tested NR = Not Reported NN = See Therapy Comments THERAPY COMMENTS Note 1: For infections other than uncomplicated UTI caused by E. coli, K. pneumoniae or P. mirabilis: Cefazolin is resistant if MAXIMILIANO > or = 8 mcg/mL. (Distinguishing susceptible versus intermediate for isolates with MAXIMILIANO < or = 4 mcg/mL requires additional testing.) Note 2: For uncomplicated UTI caused by E. coli, K. pneumoniae or P. mirabilis: Cefazolin is susceptible if MAXIMILIANO <32 mcg/mL and predicts susceptible to the oral agents cefaclor, cefdinir, cefpodoxime, cefprozil, cefuroxime, cephalexin and loracarbef. Reason For Referral No Information Medications Medication SIG (Take, Route, Frequency, Duration) Notes Start Date End Date Status OXYGEN 2 LITERS DIRECTED DAILY 04/30/2019 Active Vitamin B12 1000 MCG 1 tablet Orally Onc e a day Active Omeprazole 20 MG 1 cap(s) orally once a day; Duration: 90 days prn 03/28/2020 Not-Takin g Magnesium 125 MG as directed Orally Active Gemtesa 75 MG Take 1 tablet by hailey th once daily; Duration: 30 Active Meloxicam 15 MG TAKE 1 TABLET BY HAILEY TH ONCE DAILY NEEDED FOR JOINT PAIN; Duration: 90 Active Trelegy Ellipta 200-62.5-25 MCG/ACT INHALE 1 PUFF ONCE DAILY; Duration: 30 Active Reclast 5 MG/100ML as directed Intravenous yearly 025 Active Lovastatin 40 MG 2 tab(s) orally once a day; Duration: 90 days Active Albuterol Sulfate HFA 108 (90 Base) MCG/ACT 1 puff as needed Inhalation every 6 hours as needed; Duration: 30 days Active busPIRone HCl 10 MG 1 tab(s) orally 2 ti mes a day; Duration: 90 days 09/06/2022 Active Ondansetron HCl 4 MG 1 tablet Orally laura ry 8 hours as needed for nausea/vomiting; Duration: 4 days 10/08/2024 Active Ipratropium-Albuterol 0.5-2.5 (3) MG/3ML 3 mL by nebulizer 4 times a day as needed for COPD symptoms; Duration: 30 days 06/11/2023 Active Bactrim DS 800-160 MG 1 tablet Orally Th ree times a Week; Duration: 7 days 03/06/2025 Active Vitamin D 1000MG 2 tab ORALLY once a day; Duration: 30 days 06/23/2021 Active Immunizations Vaccine Route Administration Date Status Comme nts Adacel (Tdap) Unknown 07/11/2007 Administered Adacel (Tdap) Unknown 07/27/2013 Administered Fluzone High Dose IM Intramuscular 03/05/2019 Administered Fluzone High Dose IM Intramuscular 03/08/2022 Administered Fluzone High Dose IM Intramuscular 03/04/2023 Administered Fluzone High Dose IM Intramuscular 03/24/2024 Administered Influenza (Fluzone)--Medicare only IM Intramuscular 05/17/2014 Administered Influenza (Fluzone)--Medicare only IM Intramuscular 04/01/2015 Administered Influenza (Fluzone)--Medicare only IM Intramuscular 04/02/2016 Administered Influenza (Fluzone)--Medicare only IM Intramuscular 05/26/2018 Administered Pneumovax-23 (pneumococccal vaccine polyvalent)2 years or older Unknown 07/27/2013 Administered Prevnar PCV-13 (Pneumococcal conjugate 13) IM Intramuscular 04/02/2016 Administered Td Adult Unknown 08/16/1996 Administered Social History Tobacco Use: Social History Observation Description Date Details (start date - stop date) Former Smoker NA - NA Tobacco Control (Standard) Question Answer Notes Tobacco use: Former smoker How long has it been since you last smoked? 6-12 months Additional Findings: Tobacco user e-cigarette Section Notes: vapes vapes vapes Problems Problem Type SNOMED Code ICD Code Onset Dates Problem Status W/U Status Risk Notes Problem Overweight (091087196) Overweight (E66.3) Active confirmed Problem Chronic respiratory failure (01673078) Chronic respiratory failure with hypoxia (J96.11) Active confirmed Problem Cervicovaginal cytology: Low grade squamous intraepithelial lesion (569090775) Low grade squamous intraepithelial lesion on cytologic smear of cervix (LGSIL) (R87.612) Active confirmed Problem Tobacco use (102044130) Tobacco use (Z72.0) Active confirmed Problem Anxiety (32019764) Anxiety (F41.9) Active confi rmed Problem Vitamin D deficiency (77521555) Vitamin D deficiency (E55.9) Active confirmed Problem General examination of patient (437073534) Routine medical exam (Z00.00) Active confirmed Problem Mammogram - screening (59822346) Visit for screening mammogram (Z12.31) Active confirmed Problem Osteoporosis (03963065) Osteoporosis (M81.0) Active confirmed Problem Hyperglycemia (21220497) Hyperglycemia (R73.9) Active confirmed Problem Hyperlipidaemia (20616318) Hyperlipidemia LDL goal <100 (E78.5) Active confirmed Problem Vitamin B12 deficiency (non anemic) (86267224) B12 deficiency (E53.8) Active confirmed Problem Body mass index 25-29 - overweight (272498831) BMI 25.0-25.9,adult (Z68.25) Active confirmed Problem Acute exacerbation of chronic obstructive airways disease (981085455) COPD exacerbation (J44.1) Active confirmed Problem Hyperlipidemia (30014646) Hyperlipidemia LDL goal <130 (E78.5) Active confirmed Problem Allergic rhinitis (25180204) Chronic allergic rhinitis (J30.9) Active confirmed Problem Chronic bronchitis (52581151) Chronic bronchitis, unspecified chronic bronchitis type (J42) Active confirmed Problem Solitary nodule of lung (785527403) Lung nodule (R91.1) Active confirmed Problem Pulmonary nodule (593242293) Pulmonary nodule (R91.1) Active confirmed Problem Generalized anxiety disorder (27513851) DADA (generalized anxiety disorder) (F41.1) Active confirmed Problem Overactive urinary bladder (disorder) (129838552) OAB (overactive bladder) (N32.81) Active confirmed Problem Tubular adenoma (072280421) Tubular adenoma (D36.9) Active confirmed Problem Body mass index 25-29 - overweight (603825841) BMI 26.0-26.9,adult (Z68.26) Active confirmed Problem Spasm (86484902) Neck muscle spa sm (M62.838) Active confirmed Problem Urge urinary incontinence (95761214) Urge urinary incontinence (N39.41) Active confirmed Problem Chronic obstructive lung disease (33391183) COPD without exacerbation (J44.9) Active confirmed Problem Gastroesophageal reflux disease (disorder) (269236529) Chronic GERD (K21.9) Active confirmed Problem Solitary sacroiliitis (520408966) SI (sacroiliac) joint inflammation (M46.1) Active confirmed Problem Ex-tobacco user (finding) (410236104) Personal history of tobacco use (Z87.891) Active confirmed Problem Constipation (32661687) Unspecified constipation (K59.00) Active confirmed Problem Normal body mass index (07705085) BMI 23.0-23.9, adult (Z68.23) Active confirmed Problem Computed tomography result abnormal (finding) (445950860) Abnormal finding on CT scan (R93.89) Active confirmed Problem Phzsj-mn-ekdofqz hypoxemic respiratory failure (disorder) (86145942389768026) Acute on chronic respiratory failure with hypoxemia (J96.21) Active confirmed Vital Signs Heart Rate 96 /min 03/04/2025 Temperature 97.6 degrees Fahrenheit 03/04/2025 Blood pressure diastolic 52 mm Hg 03/04/2025 Height 60.5 in 03/04/2025 Blood pressure systolic 140 mm Hg 03/04/2025 Weight 138.2 lbs 03/04/2025 BMI 26.54 kg/m2 03/04/2025 Encounters Encounter Location Date Provider Diagnosis [facility] [address] [place], [place] [address] 09/12/2024 Provider Migration Hyperlipidemia LDL goal <130 E78.5 ; Acute pain of right shoulder M25.511 and COPD without exacerbation J44.9 [facility] [address] [place], [place] [address] 03/24/2024 Deep Isaac Immunization(s) administered Z23 [facility] [address] [place] [address] 06/21/2024 Henrikarsen Hand Burning with urinati on R30.0 [facility] [address] [facility] [address] [place] [address] 09/14/2024 Deep Isaac COPD without exacerbation J44.9 ; Medicare annual wellness visit, subsequent Z00.00 ; B12 deficiency E53.8 ; Hyperlipidemia LDL goal <130 E78.5 ; Anxiety F41.9 ; Osteoporosis M81.0 ; Personal history of tobacco use Z87.891 ; Chronic respiratory failure with hypoxia J96.11 ; Vitamin D deficiency E55.9 ; Chronic GERD K21.9 ; BMI 27.0-27.9,adult Z68.27 ; Overweight E66.3 and Urge urinary incontinence N39.41 [facility] [address] [place] [facility] [address] [place] [address] 10/08/2024 Deep Marlin Nausea R11.0 and Upp er abdominal pain R10.10 [facility] [address] [place] [facility] [address] [place] [address] 03/04/2025 Deep Marlin Dysuria R30.0 ; Acut e UTI N39.0 ; Anxiety F41.9 and Nausea R11.0 [facility] [address] [address] 06/22/2024 Henrik Besson [facility] [address] [place] [facility] [address] [place] [address] 10/05/2024 Deep Isaac Personal history of tobacco use Z87.891 and Breast cancer screening by mammogram Z12.31 [facility] [address] [address] 10/09/2024 Deep Marlin [facility] [address] [address] 10/09/2024 Deep Marlin [facility] [address] [address] 11/12/2024 Deep Marlin Urge urinary incontinence N39.41 [facility] [address] [place] [address] 03/06/2025 Deep Isaac Acute UTI N39.0 [facility] [address] [place] [address] 03/10/2025 Deep Isaac Acute UTI N39.0 Assessments Encounter Date Diagnosis (ICD Code) Assessment Notes Treatment Notes Treatment Clinical Notes Section Notes 03/24/2024 Immunization(s) administered (ICD-10 - Z23) 06/21/2024 Burning with urination (ICD-10 - R30.0) 09/12/2024 Hyperlipidemia LDL goal <130 (ICD-10 - E78.5) 09/12/2024 Acute pain of right shoulder (ICD-10 - M25.511) 09/12/2024 COPD without exacerbation (ICD-10 - J44.9) 09/14/2024 COPD without exacerbation (ICD-10 - J44.9) stable, continue triple therapy 09/14/2024 Medicare annual wellness visit, subsequent (ICD-10 - Z00.00) encouraged living will, consider RSV and Shingrix vaccinations, otherwise doing quite well over the past year. we did discuss transitioning to a vape product that does not contain nicotine if she continues to vape 10/08/2024 Nausea (ICD-10 - R11.0) Post-viral gastritis? Recommend take PPI daily, no NSAIDS, bland diet/clear fluids and labs as noted. Consider imaging pending labs results and symptoms. 10/08/2024 Upper abdominal pain (ICD-10 - R10.10) 11/12/2024 Urge urinary incontinence (ICD-10 - N39.41) 10/05/2024 Personal history of tobacco use (ICD-10 - Z87.891) 03/04/2025 Dysuria (ICD-10 - R30.0) 03/04/2025 Acute UTI (ICD-10 - N39.0) Discussed suspected UTI based on symptoms/UA results and need for treatment with antibiotics as well as good water intake. Discussed return precautions including fever, vomiting, intractable pain, etc. 03/06/2025 Acute UTI (ICD-10 - N39.0) 03/10/2025 Acute UTI (ICD-10 - N39.0) 03/04/2025 Anxiety (ICD-10 - F41.9) 10/05/2024 Breast cancer screening by mammogram (ICD-10 - Z12.31) 09/14/2024 B12 deficiency (ICD-10 - E53.8) 09/14/2024 Hyperlipidemia LDL goal <130 (ICD-10 - E78.5) Continue statin therapy, goal LDL < 100 03/04/2025 Nausea (ICD-10 - R11.0) 09/14/2024 Anxiety (ICD-10 - F41.9) Continue buspirone 09/14/2024 Osteoporosis (ICD-10 - M81.0) continue Prolia, DEXA improving 2023, repeat 202509/14/2024 Personal history of tobacco use (ICD-10 - Z87.891) Screening CT due again in 09/14/2024 Chronic respiratory failure with hypoxia (ICD-10 - J96.11) continue O2 supplement 09/14/2024 Vitamin D deficiency (ICD-10 - E55.9) Continue replacement with OTC supplement 09/14/2024 Chronic GERD (ICD-10 - K21.9) Continue PPI as needed 09/14/2024 BMI 27.0-27.9,adult (ICD-10 - Z68.27) 09/14/2024 Overweight (ICD-10 - E66.3) some weight gain since she stopping smoking, recommend increase activity as much as tolerated 09/14/2024 Urge urinary incontinence (ICD-10 - N39.41) samples of Gemtesa provided 09/14/2024 Other Plan Of Treatment Pending Test Test Name Order Date DEXA Hip and Spine - Screening EKG : In House 05/28/2022 CT Scan : Chest, With & Without Contrast 06/15/2019 Mammogram : Bilateral 06/14/2021 H-CMP 01/28/2017 H-LIPID PANEL 01/28/2017 H-HGBA1C 01/28/2017 H-VIT D, 25-HYDROXY 01/28/2017 C-CBC 02/23/2016 C-CMP 02/23/2016 C-LIPID PANEL 02/23/2016 C-VITAMIN B12 02/23/2016 M-Complete Blood Count Auto Diff 022 M-Comprehensive Metabolic Panel 06/14/19 M-Lipid Panel 06/14/2021 M-Vitamin B12 06/14/2021 M-Vitamin D 25 Hydroxy 06/14/2021 CT Scan : Chest, Lung Cancer Screening 0 10/05/2024 Culture, Urine 03/08/2022 Insurance Providers Payer Name Payer Address Payer Phone Subscriber Number Group Number Insured Name Patient Relationship to Insured Coverage Start Date Coverage End Date [employer] DUAL [address] [address] [place] [address] [id number] Mile Mayes Self - patient is the insured 5 6 Medications Administered Medication Instructions Date of Administration Dosage Notes Ceftriaxone 500 09/06/2014 500 mg Dexamethasone 4mg Injection 06/05/2023 4 mg Kenalog 09/06/2014 1 mL Kenalog 06/26/2016 1 mL Medical (General) History Medical History History ICD Code COPD Hyperlipidemia osteoporosis. Prolia started 2022, oral bisphosphonates in the past colonoscopy September 2016 with tubular robert brigido, repeat 2021 tobacco use LGSIL on PAP 2015, treated and now follo wed by Dr Enoc [email or web address] in January 2021 pneumonia 2022 Surgical History Surgery Date(Month/Year) lumpectomy rt breast benign skin cancer removal on forehead colonoscopy 08/2016 cataract surgery-both eyes 08/2017 Hospitalization History Reason Date(Month/Year) [facility]- Pneumonia 03/2019 Pneumonia 1997
[2025-03-12 11:02] LABS: Microscopic, Urine URINE MICROSCOPIC (MICROSCOPIC)
[2025-03-12 11:16] LABS: Hematocrit 42.4 % (37.0-47.0); Hemoglobin 13.8 g/dL (12.2-16.2); Immature Granulocytes % 0.1 %; Mean Corpuscular HGB Conc 32.5 g/dL (31.8-35.4); Mean Corpuscular Hemoglobin 29.7 pg (27.0-31.2); Mean Corpuscular Volume 91.2 fl (81-99); Nucleated Red Blood Cells % 0 %; Platelet Count 217 K/mm3 (142-424); Red Blood Count 4.65 M/mm3 (4.20-5.40); Red Cell Distribution Width-SD 43.3 fL; White Blood Count 6.7 K/mm3 (4.8-10.8)
[2025-03-12 11:43] LABS: Bilirubin,Urine Negative (Negative); Color,Urine YELLOW (Yellow); Glucose,Urine (UA) Negative (Negative); Ketones,Urine Negative (Negative); Leukocyte Esterase,Urine Negative (Negative); PH,Urine 6.0 (5.0-8.5); Protein,Urine Negative (Negative); Specific Gravity, Urine 1.020 (1.005-1.030); Urobilinogen,Urine 0.2 EU/dl (0.2)
[2025-03-12 11:55] LABS: Bacteria,Urine Trace /lpf; Squamous Epithelial Cell,Urine Occasional #/hpf (0-5); WBC,Urine Occasional #/hpf (0-3)
[2025-03-12 12:39] LABS: Alanine Aminotransferase 17 U/L (12-78); Albumin Level 4.3 g/dl (3.5-5.0); Albumin/Globulin Ratio 1.8 (1.1-1.8); Alkaline Phosphatase 93 U/L (38-126); Anion Gap 16.5 mEq/L (5-15); Aspartate Amino Transferase 23 U/L (14-36); Bilirubin,Total 0.6 mg/dl (0.2-1.3); Blood Urea Nitrogen 16 mg/dl (7-17); Calcium 9.8 mg/dl (8.4-10.2); Carbon Dioxide 28 mmol/L (22.0-30.0); Chloride 98 mmol/L (98-107); Creatinine,Serum 0.90 mg/dl (0.52-1.04); Estimated Glomerular Filt Rate 61 ml/min (>60); GFR (African American) 74 ML/MIN (>60); Globulin 2.4 g/dL (1.3-3.2); Glucose 106 mg/dl (74-100); Potassium 4.5 mmoL/L (3.5-5.1); Sodium 138 mmol/L (136-145); Total Protein,Serum 6.7 g/dl (6.3-8.2)
[2025-03-12 12:44] LABS: C-Reactive Protein 1.1 mg/L (0-4)
== END 2025-03-12 23:59 | disposition home or self-care (01) ==
LOC: LAB 10:57
PROVIDERS: PCP Nurse Practitioner Family; Visit Provider Nurse Practitioner Family
DX: N39.0 Urinary tract infection, site not specified (principal)
CPT/HCPCS: 36415; 80053; 81001; 85025; 85651; 86140; 87086